=== PATIENT | male | born 1955 | race Caucasian/White ===

== ENCOUNTER 2023-08-06 15:34 | Inpatient (IN) | payer OTHER ==
[~2023-08-06] VITALS: Ht 188 cm; Wt 102.7 kg
[2023-08-06 17:07] LABS: Basophils # (auto) 0.1 10 ^3/uL (0-0.2); Basophils % (auto) 1.1 % (0.0-2.0); Eosinophils # (auto) 0.3 10 ^3/uL (0-0.8); Eosinophils % (auto) 3.6 % (0.0-7.0); Hematocrit 47.6 % (41.0-53.0); Hemoglobin 16.6 g/dL (13.5-17.5); Lymphocytes # (auto) 1.8 10 ^3/uL (0.4-5.4); Lymphocytes % (auto) 20.8 % (10.0-50.0); Mean Corpuscular Hemoglobin 33.6 pg (28.0-32.0); Mean Corpuscular Hgb Conc. 34.9 g/dL (32.0-36.0); Mean Corpuscular Volume 96.5 fL (80.0-100.0); Monocytes # (auto) 0.8 10 ^3/uL (0-1.3); Monocytes % (auto) 8.9 % (0.0-12.0); Neutrophils # (auto) 5.6 10 ^3/uL (1.6-8.6); Neutrophils % (auto) 65.6 % (37.0-80.0); Nucleated Red Blood Cells % 0.3 %; Red Blood Cells 4.93 10^6/uL (4.5-5.90); Red Cell Distribution Width 14.6 % (11.8-14.3); White Blood Cell 8.5 10^3/uL (4.4-10.8)
[2023-08-06 17:22] LABS: Alanine Aminotransferase 17 U/L (7-40); Albumin 4.3 g/dL (3.2-4.8); Alkaline Phosphatase 98 U/L (46-116); Anion Gap 11 (5-15); Aspartate Aminotransferase 23 U/L (13-40); BUN/Creatinine Ratio 6.7 (10.0-20.0); Bilirubin, Total 0.6 mg/dL (0.2-1.0); Blood Urea Nitrogen 9 mg/dL (9-23); Calcium 9.2 mg/dL (8.5-10.1); Carbon Dioxide 20 mmol/L (20-30); Chloride 90 mmol/L (98-107); Glucose 83 mg/dL (74-106); Potassium 4.1 mmol/L (3.5-5.1); Sodium 121 mmol/L (136-145); Total Protein 7.1 g/dL (5.7-8.2)
[2023-08-06 17:39] LABS: Lactic Acid w/Reflex 2.6 mmol/L (0.4-2.0)
[2023-08-06] MEDS: SODIUM CHLORIDE 0.9% 1,000 ML IV ONE ×2 (21:03→22:39)
[2023-08-06] MEDS: CLINDAMYCIN 300MG IV 50 ML IV ONE (21:12)
[2023-08-06] MEDS: PIPERACILLIN-TAZOB 3.375GM 100 ML IV ONE (22:39)
[2023-08-06] MEDS ORDERED: DOCUSATE SOD 100 MG CAP PO PRN (22:45)
[2023-08-06] MEDS ORDERED: DEXTROSE (50%) 50ML SYRG IV PRN (22:45)
[2023-08-06] MEDS ORDERED: HYDROcodone-ACET 5/325MG TAB PO PRN (22:45)
[2023-08-06] MEDS ORDERED: ONDANSETRON HCL 4 MG/2 ML VIAL IV PRN (22:45)
[2023-08-06] MEDS ORDERED: ACETAMINOPHEN 325 MG TAB PO PRN (22:45)
[2023-08-07] MEDS: SODIUM CHLORIDE 0.9% 500 ML IV ONE (02:08)
[2023-08-07] MEDS: SODIUM CHLORIDE 0.9% 1,000 ML IV SCH (02:49)
[2023-08-07 06:25] LABS: Basophils # (auto) 0.1 10 ^3/uL (0-0.2); Basophils % (auto) 0.6 % (0.0-2.0); Eosinophils # (auto) 0.1 10 ^3/uL (0-0.8); Eosinophils % (auto) 1.2 % (0.0-7.0); Hematocrit 46.5 % (41.0-53.0); Hemoglobin 16.2 g/dL (13.5-17.5); Lymphocytes # (auto) 1.2 10 ^3/uL (0.4-5.4); Lymphocytes % (auto) 13.5 % (10.0-50.0); Mean Corpuscular Hgb Conc. 34.9 g/dL (32.0-36.0); Mean Corpuscular Volume 97.3 fL (80.0-100.0); Monocytes # (auto) 0.9 10 ^3/uL (0-1.3); Monocytes % (auto) 9.5 % (0.0-12.0); Neutrophils # (auto) 6.9 10 ^3/uL (1.6-8.6); Neutrophils % (auto) 75.2 % (37.0-80.0); Nucleated Red Blood Cells % 0.1 %; Red Blood Cells 4.77 10^6/uL (4.5-5.90); Red Cell Distribution Width 14.3 % (11.8-14.3); White Blood Cell 9.1 10^3/uL (4.4-10.8)
[2023-08-07] MEDS: PIPERACILLIN-TAZOB 3.375GM 100 ML IV SCH (06:31)
[2023-08-07 06:42] LABS: Alanine Aminotransferase 18 U/L (7-40); Albumin 4.1 g/dL (3.2-4.8); Alkaline Phosphatase 97 U/L (46-116); Anion Gap 9 (5-15); Aspartate Aminotransferase 23 U/L (13-40); BUN/Creatinine Ratio 7.8 (10.0-20.0); Bilirubin, Total 1.1 mg/dL (0.2-1.0); Blood Urea Nitrogen 9 mg/dL (9-23); Calcium 8.8 mg/dL (8.5-10.1); Carbon Dioxide 20 mmol/L (20-30); Chloride 93 mmol/L (98-107); Glucose 104 mg/dL (74-106); Potassium 4.5 mmol/L (3.5-5.1); Sodium 122 mmol/L (136-145); Total Protein 6.9 g/dL (5.7-8.2)
[2023-08-07] MEDS: InsuLIN REG 1unit/0.01ml Soln (100units/ml) SC SCH (07:00)
[2023-08-07] MEDS: ACCU-CHEK COMFORT CURVE STRIP VI SCH (07:24)
[2023-08-07 08:41] VITALS: PULSE 73; RESP 18; O2SAT 95
[2023-08-07] MEDS: ASCORBIC ACID 500 MG TAB PO SCH (10:59)
[2023-08-07] MEDS: ASPirin 81 mg TAB PO SCH (10:59)
[2023-08-07] MEDS: ZINC SULFATE 220mg CAP or TAB PO SCH (10:59)
[2023-08-07 13:16] VITALS: BP 139/89; PULSE 77; RESP 19; TEMP 98; O2SAT 95
[2023-08-07] MEDS ORDERED: VANCOMYCIN PER PHARMACY 0 MG IV SCH (14:15)
[2023-08-07 14:25] LABS: Triglycerides 47 mg/dL (< 150)
[2023-08-07 14:26] LABS: LDL Cholesterol 63 mg/dL (< 100)
[2023-08-07 14:27] LABS: Cholesterol 160 mg/dL (< 200); HDL Cholesterol 82 mg/dL (40-59)
[2023-08-07] MEDS ORDERED: METF-371 PO (16:28)
[2023-08-07] MEDS ORDERED: ATOR10TA52 PO (16:30)
[2023-08-07] MEDS ORDERED: METO-289 PO (16:30)
[2023-08-07] MEDS ORDERED: AMLO1TAB22 PO (16:30)
[2023-08-07] MEDS ORDERED: LOSA-534 PO (16:30)
[2023-08-07] MEDS: VANCOMYCIN 1GM/200ML 200 ML IV ONE (16:34)
[2023-08-07 16:45] VITALS: BP 157/103; PULSE 99; RESP 19; TEMP 98; O2SAT 96
[2023-08-07 20:03] VITALS: PULSE 89; RESP 17; O2SAT 96
[2023-08-07 21:00] VITALS: BP 144/88; PULSE 89; RESP 17; TEMP 97.8; O2SAT 96
[2023-08-07] MEDS: CLOTRIMAZOLE 1 % CREAM 15GM TOP SCH (22:00)
[2023-08-07] MEDS: ATORVASTATIN 20 MG TAB PO SCH (22:31)
[2023-08-08] VITALS (7 sets, daily range): BP systolic 129–153; BP diastolic 74–91; PULSE 71–87; RESP 17–20; TEMP 97.4–98.5; O2SAT 95–98
[2023-08-08] MEDS: VANCOMYCIN 1GM/200ML 200 ML IV SCH (05:11)
[2023-08-08 05:56] LABS: Basophils # (auto) 0.1 10 ^3/uL (0-0.2); Basophils % (auto) 0.9 % (0.0-2.0); Eosinophils # (auto) 0.3 10 ^3/uL (0-0.8); Eosinophils % (auto) 4.3 % (0.0-7.0); Hematocrit 42.5 % (41.0-53.0); Hemoglobin 14.7 g/dL (13.5-17.5); Lymphocytes % (auto) 15.5 % (10.0-50.0); Mean Corpuscular Hemoglobin 33.7 pg (28.0-32.0); Mean Corpuscular Hgb Conc. 34.6 g/dL (32.0-36.0); Mean Corpuscular Volume 97.5 fL (80.0-100.0); Monocytes # (auto) 0.7 10 ^3/uL (0-1.3); Monocytes % (auto) 11.5 % (0.0-12.0); Neutrophils # (auto) 4.3 10 ^3/uL (1.6-8.6); Neutrophils % (auto) 67.8 % (37.0-80.0); Red Blood Cells 4.36 10^6/uL (4.5-5.90); Red Cell Distribution Width 14.4 % (11.8-14.3); White Blood Cell 6.3 10^3/uL (4.4-10.8)
[2023-08-08 07:00] LABS: Alanine Aminotransferase 12 U/L (7-40); Albumin 3.4 g/dL (3.2-4.8); Alkaline Phosphatase 81 U/L (46-116); Anion Gap 7 (5-15); Aspartate Aminotransferase 17 U/L (13-40); BUN/Creatinine Ratio 11.2 (10.0-20.0); Bilirubin, Total 1.1 mg/dL (0.2-1.0); Blood Urea Nitrogen 13 mg/dL (9-23); Calcium 9.1 mg/dL (8.7-10.4); Carbon Dioxide 24 mmol/L (20-30); Chloride 97 mmol/L (98-107); Glucose 142 mg/dL (74-106); Potassium 4.6 mmol/L (3.5-5.1)
[2023-08-08 07:03] LABS: Sodium 128 mmol/L (136-145)
[2023-08-08] MEDS: LOSARTAN POTASSIUM 50 MG TAB PO SCH (10:42)
[2023-08-09] VITALS (8 sets, daily range): BP systolic 138–171; BP diastolic 78–108; PULSE 66–79; RESP 18–20; TEMP 97.2–98.2; O2SAT 83–97
[2023-08-09 07:00] LABS: Basophils # (auto) 0.1 10 ^3/uL (0-0.2); Basophils % (auto) 1.1 % (0.0-2.0); Eosinophils # (auto) 0.4 10 ^3/uL (0-0.8); Eosinophils % (auto) 5.8 % (0.0-7.0); Hematocrit 42.5 % (41.0-53.0); Hemoglobin 14.3 g/dL (13.5-17.5); Lymphocytes # (auto) 1.6 10 ^3/uL (0.4-5.4); Lymphocytes % (auto) 24.6 % (10.0-50.0); Mean Corpuscular Hemoglobin 33.3 pg (28.0-32.0); Mean Corpuscular Hgb Conc. 33.7 g/dL (32.0-36.0); Mean Corpuscular Volume 98.8 fL (80.0-100.0); Monocytes # (auto) 0.9 10 ^3/uL (0-1.3); Monocytes % (auto) 13.4 % (0.0-12.0); Neutrophils # (auto) 3.5 10 ^3/uL (1.6-8.6); Neutrophils % (auto) 55.1 % (37.0-80.0); Nucleated Red Blood Cells % 0.1 %; Red Cell Distribution Width 14.6 % (11.8-14.3); White Blood Cell 6.4 10^3/uL (4.4-10.8)
[2023-08-09 07:29] LABS: Alanine Aminotransferase 10 U/L (7-40); Albumin 3.3 g/dL (3.2-4.8); Alkaline Phosphatase 67 U/L (46-116); Anion Gap 8 (5-15); Aspartate Aminotransferase 19 U/L (13-40); BUN/Creatinine Ratio 6.6 (10.0-20.0); Blood Urea Nitrogen 8 mg/dL (9-23); Calcium 8.9 mg/dL (8.7-10.4); Carbon Dioxide 21 mmol/L (20-30); Chloride 101 mmol/L (98-107); Glucose 115 mg/dL (74-106); Potassium 4.1 mmol/L (3.5-5.1); Sodium 130 mmol/L (136-145)
[2023-08-09 07:30] LABS: Bilirubin, Total 0.8 mg/dL (0.2-1.0); Total Protein 6.2 g/dL (5.7-8.2)
[2023-08-09] MEDS: hydrALAZINE HCL 20 MG/ML VL IV PRN (22:01)
[2023-08-10] VITALS (7 sets, daily range): BP systolic 146–159; BP diastolic 84–104; PULSE 66–87; RESP 18–20; TEMP 97.3–98.2; O2SAT 95–97
[2023-08-10 05:37] LABS: Basophils # (auto) 0.1 10 ^3/uL (0-0.2); Eosinophils # (auto) 0.4 10 ^3/uL (0-0.8); Eosinophils % (auto) 5.7 % (0.0-7.0); Lymphocytes # (auto) 1.4 10 ^3/uL (0.4-5.4); Mean Corpuscular Volume 98.2 fL (80.0-100.0); Monocytes # (auto) 0.8 10 ^3/uL (0-1.3); Neutrophils # (auto) 3.9 10 ^3/uL (1.6-8.6)
[2023-08-10 05:41] LABS: Alanine Aminotransferase 11 U/L (7-40); Alkaline Phosphatase 72 U/L (46-116); Anion Gap 7 (5-15); BUN/Creatinine Ratio 8.1 (10.0-20.0); Blood Urea Nitrogen 9 mg/dL (9-23); Calcium 9.5 mg/dL (8.7-10.4); Carbon Dioxide 24 mmol/L (20-30); Chloride 99 mmol/L (98-107); Glucose 126 mg/dL (74-106); Potassium 3.8 mmol/L (3.5-5.1); Sodium 130 mmol/L (136-145)
[2023-08-10 05:42] LABS: Hemoglobin 15.5 g/dL (13.5-17.5); Lymphocytes % (auto) 21.1 % (10.0-50.0); Mean Corpuscular Hemoglobin 33.9 pg (28.0-32.0); Mean Corpuscular Hgb Conc. 34.5 g/dL (32.0-36.0); Monocytes % (auto) 11.9 % (0.0-12.0); Neutrophils % (auto) 60.3 % (37.0-80.0); Nucleated Red Blood Cells % 0.4 %; Red Blood Cells 4.58 10^6/uL (4.5-5.90); Red Cell Distribution Width 14.2 % (11.8-14.3); White Blood Cell 6.4 10^3/uL (4.4-10.8)
[2023-08-10 05:43] LABS: Albumin 3.7 g/dL (3.2-4.8); Aspartate Aminotransferase 19 U/L (13-40); Bilirubin, Total 0.7 mg/dL (0.2-1.0); Total Protein 6.8 g/dL (5.7-8.2)
[2023-08-11] VITALS (8 sets, daily range): BP systolic 117–182; BP diastolic 70–108; PULSE 70–84; RESP 16–20; TEMP 97.3–98.7; O2SAT 94–96
[2023-08-11 06:40] LABS: Basophils # (auto) 0.1 10 ^3/uL (0-0.2); Basophils % (auto) 1.3 % (0.0-2.0); Eosinophils # (auto) 0.4 10 ^3/uL (0-0.8); Eosinophils % (auto) 7.2 % (0.0-7.0); Hematocrit 41.2 % (41.0-53.0); Lymphocytes # (auto) 1.4 10 ^3/uL (0.4-5.4); Mean Corpuscular Hemoglobin 33.3 pg (28.0-32.0); Monocytes # (auto) 0.6 10 ^3/uL (0-1.3); Neutrophils # (auto) 3.3 10 ^3/uL (1.6-8.6); Neutrophils % (auto) 56.5 % (37.0-80.0); Red Cell Distribution Width 14.5 % (11.8-14.3); White Blood Cell 5.8 10^3/uL (4.4-10.8)
[2023-08-11 07:01] LABS: Alanine Aminotransferase 11 U/L (7-40); Albumin 3.3 g/dL (3.2-4.8); Alkaline Phosphatase 60 U/L (46-116); Anion Gap 5 (5-15); BUN/Creatinine Ratio 7.8 (10.0-20.0); Blood Urea Nitrogen 9 mg/dL (9-23); Calcium 8.7 mg/dL (8.5-10.1); Carbon Dioxide 24 mmol/L (20-30); Chloride 102 mmol/L (98-107); Glucose 121 mg/dL (74-106); Potassium 3.9 mmol/L (3.5-5.1); Sodium 131 mmol/L (136-145)
[2023-08-11 07:02] LABS: Aspartate Aminotransferase 19 U/L (13-40); Bilirubin, Total 0.5 mg/dL (0.2-1.0)
[2023-08-12] VITALS (8 sets, daily range): BP systolic 130–175; BP diastolic 83–102; PULSE 67–86; RESP 16–20; TEMP 36.4; O2SAT 94–97
[2023-08-12 06:17] LABS: Basophils # (auto) 0.1 10 ^3/uL (0-0.2); Basophils % (auto) 1.4 % (0.0-2.0); Eosinophils # (auto) 0.5 10 ^3/uL (0-0.8); Eosinophils % (auto) 8.1 % (0.0-7.0); Hematocrit 41.3 % (41.0-53.0); Hemoglobin 14.1 g/dL (13.5-17.5); Lymphocytes # (auto) 1.3 10 ^3/uL (0.4-5.4); Lymphocytes % (auto) 22.2 % (10.0-50.0); Mean Corpuscular Hemoglobin 33.5 pg (28.0-32.0); Mean Corpuscular Hgb Conc. 34.1 g/dL (32.0-36.0); Mean Corpuscular Volume 98.3 fL (80.0-100.0); Monocytes # (auto) 0.8 10 ^3/uL (0-1.3); Monocytes % (auto) 12.8 % (0.0-12.0); Neutrophils # (auto) 3.3 10 ^3/uL (1.6-8.6); Neutrophils % (auto) 55.5 % (37.0-80.0); Red Cell Distribution Width 14.7 % (11.8-14.3); White Blood Cell 5.9 10^3/uL (4.4-10.8)
[2023-08-12 06:32] LABS: Alanine Aminotransferase 13 U/L (7-40); Alkaline Phosphatase 60 U/L (46-116); Anion Gap 7 (5-15); BUN/Creatinine Ratio 7.4 (10.0-20.0); Blood Urea Nitrogen 8 mg/dL (9-23); Calcium 8.9 mg/dL (8.5-10.1); Carbon Dioxide 23 mmol/L (20-30); Chloride 102 mmol/L (98-107); Glucose 112 mg/dL (74-106); Potassium 3.8 mmol/L (3.5-5.1); Sodium 132 mmol/L (136-145)
[2023-08-12 06:33] LABS: Albumin 3.3 g/dL (3.2-4.8); Aspartate Aminotransferase 19 U/L (13-40); Bilirubin, Total 0.5 mg/dL (0.2-1.0); Total Protein 6.1 g/dL (5.7-8.2)
[2023-08-12] MEDS: amLODIPine BESYLATE 5 MG TAB PO SCH (12:30)
[2023-08-12] MEDS ORDERED: CLIN1CAP70 PO (12:40)
[2023-08-12] MEDS ORDERED: CLOT1CRE56 TOP (12:40)
[2023-08-13] MEDS ORDERED: DAKINS QUARTER STR 0.125% (NaHypochlorite) 473 ML TOPICAL SOL TOP SCH (10:00)
== END 2023-08-12 18:06 | disposition home or self-care (01) | DRG 638 ==
LOC: ER 15:34 → OVERFLOW 08-07 → CENTRAL 08-07 12:17
PROVIDERS: ADMIT Internal Medicine; ATTEND Internal Medicine
DX: E11.621 Type 2 diabetes mellitus with foot ulcer (principal); E87.1 Hypo-osmolality and hyponatremia; L03.116 Cellulitis of left lower limb; L97.529 Non-pressure chronic ulcer of other part of left foot with unspecified severity; E78.5 Hyperlipidemia, unspecified; I10 Essential (primary) hypertension; E11.51 Type 2 diabetes mellitus with diabetic peripheral angiopathy without gangrene
CPT/HCPCS: 36415; 73700; 73718; 80053; 80061; 80202; 82565; 82962; 83036; 83605; 84295; 85025; 87040; 93925; 96365; 96367; G0378; J1815; J2543; J3490

== ENCOUNTER 2024-03-15 04:43 | Emergency (ER) | payer OTHER ==
[~2024-03-15] VITALS: Ht 188 cm; Wt 97.3 kg
[~2024-03-15 04:43] MED LIST: AMLO1TAB22 PO; ATOR10TA52 PO; CLIN1CAP70 PO; CLOT1CRE56 TOP; LOSA-534 PO; METF-371 PO; METO-289 PO
--- NOTE | 2024-03-15 05:23 | ED.PDOC ---
History of Present Illness HPI Comments 68 y/o M, with a Hx of DM, HLD, and DM, presents with c/o bilateral leg pain for 1 year. Patient is a poor historian and endorses on having pain in the legs that makes it "difficult to get up and sit down." Patient states on using his medications that he has no recollection of to manage his pain up until, today, and states on running out of some. Patient denies having any weakness, numbness, fever, chills, or other associated symptoms or modifiers at this time Chief Complaint: Lower Extremity Time Seen by MD: 05:10 Primary Care Provider: NONE Reviewed Notes: Nurses Notes, Medications, Allergies Allergies: Coded Allergies: NO KNOWN ALLERGIES (Unverified , 08/06/23) Home Meds Active Scripts Clotrimazole (Lotrimin) 1 Applic Ap, 1 APPLIC TOP BID for 15 Days, APPLIC Prov:WILBER TINEO RESIDENT 08/12/23 Clindamycin Hcl (Clindamycin Hcl) 300 Mg Cap, 300 MG PO TID for 14 Days, CAP Prov:WILBER TINEO RESIDENT 08/12/23 Reported Medications Atorvastatin Calcium (ATORVASTATIN CALCIUM) 10 Mg Tab, 1 TAB PO DAILY, #30 TAB 5 Refills 08/07/23 Losartan Potassium (Losartan Potassium) 50 Mg Tab, 50 MG PO DAILY for 30 Days, MG 08/07/23 Amlodipine Besylate (Amlodipine Besylate) 5 Mg Tab, 5 MG PO DAILY for 30 Days, MG 08/07/23 Metoprolol Succinate (Metoprolol Succinate Er) 50 Mg Tab, 50 MG PO DAILY for 30 Days, MG 08/07/23 Metformin Hydrochloride (Metformin Hcl) 850 Mg Tab, 850 MG PO TID for 30 Days, MG 08/07/23 Information Source: Patient Mode of Arrival: Ambulatory Severity: Moderate Timing: Months (12 months) Duration: Since onset Prehospital treatment: None Past Medical History PAST MEDICAL HISTORY: DM, High Lipids, HTN Surgical History: Denies all surgeries Family History Family History: Reviewed,noncontributory to illness, Unknown Social History Smoker: Non-Smoker Alcohol: Occasionally Drugs: Denies Drug Use Lives In: Home Constitutional: denies: chills, diaphoresis, fatigue, fever, malaise, sweats, weakness, others EENTM: denies: blurred vision, double vision, ear bleeding, ear discharge, ear drainage, ear pain, ear ringing, eye pain, eye redness, hearing loss, mouth pa in, mouth swelling, nasal discharge, nose bleeding, nose congestion, nose pain, photophobia, tearing, throat pain, throat swelling, voice changes, others Respiratory: denies: cough, hemoptysis, orthopnea, SOB at rest, shortness of breath, SOB with excertion, stridor, wheezing, others Cardiovascular: denies: chest pain, dizzy spells, diaphoresis, Dyspnea on exertion, edema, irregular heart beat, left arm pain, lightheadedness, palpitations, PND, syncope, others Gastrointestinal: denies: abdomen distended, abdominal pain, blood streaked bowels, constipated, diarrhea, dysphagia, difficulty swallowing, hematemesis, melena, nausea, poor appetite, poor fluid intake, rectal bleeding, rectal pain, vomiting, others Genitourinary: denies: burning, dysuria, flank pain, frequency, hematuria, incontinence, penile discharge, penile sore, pain, testicle pain, testicle swelling, urgency, others Neurological: denies: dizziness, fainting, headache, left sided numbness, left sided weakness, numbness, paresthesia, pre-existing deficit, right sided numbness, right sided weakness, seizure, speech problems, tingling, tremors, weakness, others Musculoskeletal: reports: others (bilateral leg pain ); denies: back pain, gout, joint pain, joint swelling, muscle pain, muscle stiffness, neck pain Integumetry: denies: bruises, change in color, change in hair/nails, dryness, laceration, lesions, lumps, rash, wounds, others Allergic/Immunocompromised: denies: Difficulty Healing, Frequent Infections, Hives, Itching, others Hematologic/Lymphatic: denies: anemia, blood clots, easy bleeding, easy bruising, swollen glands, others Endocrine: denies: excessive hunger, excessive sweating, excessive thirst, excessive urination, flushing, intolerance to cold, intolerance to heat, unexplained weight gain, unexplained weight loss, others Psychiatric: denies: anxiety, bipolar disorder, depression, hopeless, panic disorder, schizophrenia, sleepless, suicidal, others All Other Systems: Reviewed and Negative Physical Exam General Appearance: No Apparent Distress HEENT: Normal ENT Inspection, Pharynx Normal, TMs Normal Neck: Full Range of Motion, Non-Tender, Normal, Normal Inspection Respiratory: Chest Non-Tender, Lungs Clear, No Accessory Muscle Use, No Respiratory Distress, Normal Breath Sounds Cardiovascular: No Edema, No JVD, No Murmur, No Gallop, Normal Peripheral Pulses, Regular Rate/Rhythm Breast Exam: Deferred Gastrointestinal: No Organomegaly, Non Tender, No Pulsatile Mass, Normal Bowel Sounds, Soft Genitalia: Deferred Pelvic: Deferred Rectal: Deferred Extremities: No calf tenderness, Normal capillary refill, Normal inspection, Normal range of motion, Non-tender, No pedal edema Musculoskeletal : Apperance: Normal Neurologic: 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 Was a procedure done?: No Differential Dx Considerations may include: chronic pain syndrome, sciatic, sprain X-Ray, Labs, Meds, VS Vital Signs Date Time Temp Pulse Resp B/P (MAP) Pulse Ox O2 Delivery O2 Flow Rate FiO2 03/15/24 05:00 99.0 95 16 124/94 (104) 94 At this time, the patient was given Toradol 30 mg IM The patient was being discharged and will follow up with the primary care doctor The patient will return to the emergency department's the condition worsens Time of 1ST Reevaluation: 05:40 Reevaluation 1ST: Unchanged Patient Education/Counseling: Diagnosis, Treatment, Prognosis, Need For Follow Up Family Education/Counseling: No Family Present Departure 1 Departure Time of Disposition: 05:29 Impression: Primary Impression: Bilateral leg pain Disposition: 01 HOME / SELF CARE / HOMELESS Condition: Fair Discharged With: Self Critical Care Note Critical Care Time?: No Stability Stability form required: No Heart Score Heart Score: Heart Score Response (Comments) Value History N/A 0 EKG N/A 0 Age N/A 0 Risk Factors N/A 0 Troponin N/A 0 Total 0 I personally scribed for ABDOUL JOE MD ([email or web address]) on 03/15/24 at 05:23. Electronically submitted by Rd Myers ([email or web address]). ABDOUL JOE MD Mar 15, 2024 05:23
[2024-03-15 06:40] VITALS: BP 133/86; PULSE 98; RESP 22; TEMP 98.9; O2SAT 95
[2024-03-15] MEDS: KETOROLAC TROMETH 60MG/2ML VIAL IM ONE (06:45)
== END 2024-03-15 07:15 | disposition home or self-care (01) ==
LOC: ER 04:43
DX: M79.605 Pain in left leg (principal); M79.604 Pain in right leg; E11.9 Type 2 diabetes mellitus without complications; E78.5 Hyperlipidemia, unspecified; I10 Essential (primary) hypertension; Z79.899 Other long term (current) drug therapy
CPT/HCPCS: 96372; 99283; J1885

== ENCOUNTER 2024-04-08 02:15 | Emergency (ER) | payer OTHER ==
[~2024-04-08] VITALS: Ht 188 cm; Wt 95.5 kg
[2024-04-08 03:29] VITALS: BP 109/75; PULSE 118; RESP 18; O2SAT 96
--- NOTE | 2024-04-08 04:11 | ED.PDOC ---
General HPI Comments 68-year-old male who came to ER for urinary issues. Patient does have history of hypertension and diabetes. States for the past few hours, has been having suprapubic abdominal pain, with episodes of gross hematuria and urinary frequency. Denies any dysuria or burning on urination. Patient also compla ining of swelling of the right lower extremity which has been going on for the past 6 months. Chief Complaint: Urinary Time Seen by MD: 04:10 Primary Care Provider: NONE Reviewed notes: Nurses Notes Allergies: Coded Allergies: NO KNOWN ALLERGIES (Unverified , 08/06/23) Home Meds Active Scripts Clotrimazole (Lotrimin) 1 Applic Ap, 1 APPLIC TOP BID for 15 Days, APPLIC Prov:WILBER TINEO RESIDENT 08/12/23 Clindamycin Hcl (Clindamycin Hcl) 300 Mg Cap, 300 MG PO TID for 14 Days, CAP Prov:WILBER TINEO RESIDENT 08/12/23 Reported Medications Atorvastatin Calcium (ATORVASTATIN CALCIUM) 10 Mg Tab, 1 TAB PO DAILY, #30 TAB 5 Refills 08/07/23 Losartan Potassium (Losartan Potassium) 50 Mg Tab, 50 MG PO DAILY for 30 Days, MG 08/07/23 Amlodipine Besylate (Amlodipine Besylate) 5 Mg Tab, 5 MG PO DAILY for 30 Days, MG 08/07/23 Metoprolol Succinate (Metoprolol Succinate Er) 50 Mg Tab, 50 MG PO DAILY for 30 Days, MG 08/07/23 Metformin Hydrochloride (Metformin Hcl) 850 Mg Tab, 850 MG PO TID for 30 Days, MG 08/07/23 Information Source: Patient Mode of Arrival: Ambulatory Severity: Moderate Inability to void: Mild Timing: Hours Duration: Since onset Has not urinated for: Minutes Onset: Spontaneous Symptoms: Frequency, Hematuria History of: None Location: Suprapubic associated signs and symptoms: Abdominal Pain, Frequency, Hematuria Past Medical History PAST MEDICAL HISTORY: DM, High Lipids, HTN Surgical History: Denies all surgeries Family History Family History: Reviewed,noncontributory to illness Social History Smoker: Non-Smoker Alcohol: Occasionally Drugs: Denies Drug Use Lives In: Home Constitutional: denies: chills, diaphoresis, fatigue, fever, malaise, sweats, weakness, others EENTM: denies: blurred vision, double vision, ear bleeding, ear discharge, ear drainage, ear pain, ear ringing, eye pain, eye redness, hearing loss, mouth pain, mouth swelling, nasal discharge, nose bleeding, nose congestion, nose pain, photophobia, tearing, throat pain, throat swelling, voice changes, others Respiratory: denies: cough, hemoptysis, orthopnea, SOB at rest, shortness of breath, SOB with excertion, stridor, wheezing, others Cardiovascular: denies: chest pain, dizzy spells, diaphoresis, Dyspnea on exertion, edema, irregular heart beat, left arm pain, lightheadedness, palpitations, PND, syncope, others Gastrointestinal: reports: abdominal pain; denies: abdomen distended, blood streaked bowels, constipated, diarrhea, dysphagia, difficulty swallowing, hematemesis, melena, nausea, poor appetite, poor fluid intake, rectal bleeding, rectal pain, vomiting, others Genitourinary: reports: frequency, hematuria; denies: burning, dysuria, flank pain, incontinence, penile discharge, penile sore, pain, testicle pain, testicle swelling, urgency, others Neurological: denies: dizziness, fainting, headache, left sided numbness, left sided weakness, numbness, paresthesia, pre-existing deficit, right sided numbness, right sided weakness, seizure, speech problems, tingling, tremors, weakness, others Musculoskeletal: denies: back pain, gout, joint pain, joint swelling, muscle pain, muscle stiffness, neck pain, others Integumetry: denies: bruises, change in color, change in hair/nails, dryness, laceration, lesions, lumps, rash, wounds, others Allergic/Immunocompromised: denies: Difficulty Healing, Frequent Infections, Hives, Itching, others Hematologic/Lymphatic: denies: anemia, blood clots, easy bleeding, easy bruising, swollen glands, others Endocrine: denies: excessive hunger, excessive sweating, excessive thirst, excessive urination, flushing, intolerance to cold, intolerance to heat, unexplained weight gain, unexplained weight loss, others Psychiatric: denies: anxiety, bipolar disorder, depression, hopeless, panic disorder, schizophrenia, sleepless, suicidal, others Physical Exam General Appearance: No Apparent Distress, Normal HEENT: Normal ENT Inspection, Pharynx Normal, TMs Normal Neck: Full Range of Motion, Non-Tender, Normal, Normal Inspection Respiratory: Chest Non-Tender, Lungs Clear, No Accessory Muscle Use, No Respiratory Distress, Normal Breath Sounds Cardiovascular: No Edema, No JVD, No Murmur, No Gallop, Normal Peripheral Pul ses, Regular Rate/Rhythm Breast Exam: Deferred Gastrointestinal: No Organomegaly, Non Tender, No Pulsatile Mass, Normal Bowel Sounds, Soft Genitalia: Deferred Pelvic: Deferred Rectal: Deferred Extremities: No calf tenderness, Normal capillary refill, Normal inspection, Normal range of motion, Non-tender, No pedal edema Musculoskeletal : Apperance: Normal Neurologic: 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 Was a procedure done?: No Differential Diagnosis Kidney stone (Female): N/A Kidney stone (Male): Renal failure, Strain, Urinary obstruction, Urolithiasis, Renal infarction, Urinary tract infection Urinary Problem (Male): Renal Failure, Urethritis, Urinary Retention, Urolithiasis, UTI X-Ray, Labs, Meds, VS Vital Signs Date Time Temp Pulse Resp B/P (MAP) Pulse Ox O2 Delivery O2 Flow Rate FiO2 04/08/24 03:29 97.5 118 18 109/75 (86) 96 Time of 1ST Reevaluation: 04:05 Reevaluation 1ST: Unchanged Patient Education/Counseling: Diagnosis, Treatment Family Education/Counseling: No Family Present Departure 1 Departure Disposition: 07 LEFT WITHOUT BEING TRIAGED Critical Care Note Critical Care Time?: No Stability Stability form required: No Heart Score Heart Score: Heart Score Response (Comments) Value History N/A 0 EKG N/A 0 Age N/A 0 Risk Factors N/A 0 Troponin N/A 0 Total 0 I personally scribed for PAOLO LYNCH MD ([email or web address]) on 04/08/24 at 04:10. Electronically submitted by Dejuan Kay ([email or web address]). PAOLO LYNCH MD Apr 08, 2024 04:10
[2024-04-08 04:43] LABS: Urine Blood 3+ /uL (Negative); Urine Clarity Ex.Turbid (Clear); Urine Color Dark-Red (Yellow); Urine Protein, UAD 2+ (Negative); Urine Specific Gravity 1.029 (1.001-1.035); Urine Urobilinogen 3 mg/dL (Negative)
[2024-04-08 04:45] LABS: Urine Bacteria MANY /hpf (None Seen)
[2024-04-08 04:47] LABS: Urine WBC 0-1 /hpf (0 - 3)
[2024-04-08] MEDS ORDERED: CEPHALEXIN 250 MG CAP PO ONE (05:00)
== END 2024-04-08 05:03 | disposition left against medical advice (07) ==
LOC: ER 02:15
DX: R31.0 Gross hematuria (principal); R35.0 Frequency of micturition; R10.9 Unspecified abdominal pain; I10 Essential (primary) hypertension; E11.9 Type 2 diabetes mellitus without complications; E78.5 Hyperlipidemia, unspecified; Z79.84 Long term (current) use of oral hypoglycemic drugs; Z79.899 Other long term (current) drug therapy
CPT/HCPCS: 81001

== ENCOUNTER 2024-04-08 07:36 | Emergency (ER) | payer OTHER ==
[~2024-04-08] VITALS: Ht 188 cm; Wt 96.5 kg
--- NOTE | 2024-04-08 09:03 | ED.PDOC ---
History of Present Illness HPI Comments 68M presents to the ER w/ history of diabetes, hypertension and dyslipidemia brought in by self with c/c of LE swelling, right greater than left. Looking through prior Hx of the pt, he was in the ER last night complaining of blood in his urine but eloped from the ER. Patient states he went home to rest, now returns with the same complaint of hematuria for the past 2 days, and states he has not seen a physician for "a long time". PMHx of DM, High Lipids, and HTN. Denies chills, fever, N/V/D, SOB, CP, Pain During Urination or other associated symptoms, modifiers, or recent injuries at this time. Chief Complaint: Extremity Swelling Time Seen by MD: 08:30 Primary Care Provider: NONE Reviewed Notes: Nurses Notes, Medications, Allergies Allergies: Coded Allergies: NO KNOWN ALLERGIES (Unverified , 08/06/23) Home Meds Active Scripts Clotrimazole (Lotrimin) 1 Applic Ap, 1 APPLIC TOP BID for 15 Days, APPLIC Prov:WILBER TINEO RESIDENT 08/12/23 Clindamycin Hcl (Clindamycin Hcl) 300 Mg Cap, 300 MG PO TID for 14 Days, CAP Prov:WILBER TINEO RESIDENT 08/12/23 Reported Medications Atorvastatin Calcium (ATORVASTATIN CALCIUM) 10 Mg Tab, 1 TAB PO DAILY, #30 TAB 5 Refills 08/07/23 Losartan Potassium (Losartan Potassium) 50 Mg Tab, 50 MG PO DAILY for 30 Days, MG 08/07/23 Amlodipine Besylate (Amlodipine Besylate) 5 Mg Tab, 5 MG PO DAILY for 30 Days, MG 08/07/23 Metoprolol Succinate (Metoprolol Succinate Er) 50 Mg Tab, 50 MG PO DAILY for 30 Days, MG 08/07/23 Metformin Hydrochloride (Metformin Hcl) 850 Mg Tab, 850 MG PO TID for 30 Days, MG 08/07/23 Information Source: Patient Mode of Arrival: Ambulatory Severity: Moderate Timing: Hours Duration: Since onset, Hours Prehospital treatment: None Past Medical History PAST MEDICAL HISTORY: DM, High Lipids, HTN Surgical History: Denies all surgeries Family History Family History: Reviewed,noncontributory to illness, Unknown Social History Smoker: Unknown Alcohol: Unknown Drugs: Unknown Lives In: Home Constitutional: denies: chills, diaphoresis, fatigue, fever, malaise, sweats, weakness, others EENTM: denies: blurred vision, double vision, ear bleeding, ear discharge, ear drainage, ear pain, ear ringing, eye pain, eye redness, hearing loss, mouth pain, mouth swelling, nasal discharge, nose bleeding, nose congestion, nose pain, photophobia, tearing, throat pain, throat swelling, voice changes, others Respiratory: denies: cough, hemoptysis, orthopnea, SOB at rest, shortness of breath, SOB with excertion, stridor, wheezing, others Cardiovascular: denies: chest pain, dizzy spells, diaphoresis, Dyspnea on exertion, edema, irregular heart beat, left arm pain, lightheadedness, palpitations, PND, syncope, others Gastrointestinal: denies: abdomen distended, abdominal pain, blood streaked bowels, constipated, diarrhea, dysphagia, difficulty swallowing, hematemesis, melena, nausea, poor appetite, poor fluid intake, rectal bleeding, rectal pain, vomiting, others Genitourinary: reports: hematuria; denies: burning, dysuria, flank pain, frequency, incontinence, penile discharge, penile sore, pain, testicle pain, testicle swelling, urgency, others Neurological: denies: dizziness, fainting, headache, left sided numbness, left sided weakness, numbness, paresthesia, pre-existing deficit, right sided numbness, right sided weakness, seizure, speech problems, tingling, tremors, weakness, others Musculoskeletal: denies: back pain, gout, joint pain, joint swelling, muscle pain, muscle stiffness, neck pain, others Integumetry: denies: bruises, change in color, change in hair/nails, dryness, laceration, lesions, lumps, rash, wounds, others Allergic/Immunocompromised: denies: Difficulty Healing, Frequent Infections, Hives, Itching, others Hematologic/Lymphatic: denies: anemia, blood clots, easy bleeding, easy bruising, swollen glands, others Endocrine: denies: excessive hunger, excessive sweating, excessive thirst, excessive urination, flushing, intolerance to cold, intolerance to heat, unexplained weight gain, unexplained weight loss, others Psychiatric: denies: anxiety, bipolar disorder, depression, hopeless, panic disorder, schizophrenia, sleepless, suicidal, others All Other Systems: Reviewed and Negative Physical Exam General Appearance: No Apparent Distress HEENT: Other (Pupils symmetric, dry mucous membranes) Neck: Full Range of Motion, Normal Inspection Respiratory: Lungs Clear, No Accessory Muscle Use, No Respiratory Distress, Normal Breath Sounds Cardiovascular: No JVD, Regular Rate/Rhythm Breast Exam: Deferred Gastrointestinal: Non Tender, Soft Genitalia: Deferred Pelvic: Deferred Rectal: Deferred Extremities: No calf tenderness, Normal inspection, Normal range of motion, Non-tender, Pedal edema Musculoskeletal : Apperance: Normal Neurologic: Alert (Oriented x4), Normal Affect, Normal Mood, Other (Ambulatory without difficulty. No gross focal deficit.) Cerebellar Function: NOT DONE Reflexes: NOT DONE Skin: Dry, Warm, Other (Mild right greater than left bilateral foot and ankle erythema) Lymphatic: NOT DONE Was a procedure done? Was a procedure done?: No EKG EKG : Comments Sinus tach, rate 103, normal intervals, left axis deviation, possible old inferior or anteroseptal infarct, no ST/T changes. Differential Dx Considerations may include: DVT, cellulitis, coagulopathy, UTI, hyperglycemia, hyperglycemic hyperosmolar state, DKA, electrolyte imbalance, hypovolemia, among others. X-Ray, Labs, Meds, VS Vital Signs Date Time Temp Pulse Resp B/P (MAP) Pulse Ox O2 Delivery O2 Flow Rate FiO2 04/08/24 10:18 96 16 152/99 (116) 96 04/08/24 10:02 96 18 96 Room Air* 0 21 04/08/24 08:15 103 04/08/24 08:07 98.5 109 17 135/91 (106) 100 Lab Test 04/08/24 10:12 04/08/24 09:20 04/08/24 09:16 04/08/24 09:00 Range/Units Lactic Acid Level 5.9 *H 2.3 *H 0.4-2.0 mmol/L Troponin I High Sensitivity 28 25 </=54 ng/L Blood Gas Specimen Type Arterial Blood Gas Sample Site Right radial Blood Gas Patient Temperature 37.0 Arterial Blood Date Drawn [id number] Arterial Blood pH 7.397 7.350-7.450 Arterial Blood Partial Pressure CO2 34.6 L 35.0-48.0 mmHg Arterial Blood Partial Pressure O2 70.7 L 83.0-108.0 mmHg Arterial Blood HCO3 20.8 L 21.0-28.0 mmol/L Arterial Blood Oxygen Saturation 93.8 L 94.0-98.0 % Arterial Blood Base Excess -3.1 L -2.0-3.0 mmol/L Arterial Blood Oxyhemoglobin 92.4 L 94.0-98.0 % Arterial Blood Carboxyhemoglobin 0.9 0.5-1.5 % Arterial Blood Methemoglobin 0.6 0.0-1.5 % Dimas Test Yes Blood Gas Total Hemoglobin 17.10 13.5-17.5 g/dL Blood Gas Modality Room air FiO2 % 21.0 White Blood Count 13.6 H 4.4-10.8 10^3/uL Red Blood Count 5.20 4.5-5.90 10^6/uL Hemoglobin 16.7 13.5-17.5 g/dL Hematocrit 49.8 41.0-53.0 % Mean Corpuscular Volume 95.7 80.0-100.0 fL Mean Corpuscular Hemoglobin 32.1 H 28.0-32.0 pg Mean Corpuscular Hemoglobin Concent 33.6 32.0-36.0 g/dL Red Cell Distribution Width 13.2 11.8-14.3 % Platelet Count 248 140-450 10^3/uL Mean Platelet Volume 9.2 6.9-10.8 fL Neutrophils (%) (Auto) 87.4 H 37.0-80.0 % Lymphocytes (%) (Auto) 5.3 L 10.0-50.0 % Monocytes (%) (Auto) 6.6 0.0-12.0 % Eosinophils (%) (Auto) 0.1 0.0-7.0 % Basophils (%) (Auto) 0.6 0.0-2.0 % Neutrophils # (Auto) 11.9 H 1.6-8.6 10 ^3/uL Lymphocytes # (Auto) 0.7 0.4-5.4 10 ^3/uL Monocytes # (Auto) 0.9 0-1.3 10 ^3/uL Eosinophils # (Auto) 0 0-0.8 10 ^3/uL Basophils # (Auto) 0.1 0-0.2 10 ^3/uL Nucleated Red Blood Cells 0.1 % Prothrombin Time 10.9 9.3-11.8 sec Prothrombin Time INR 1.03 0.9-1.15 Activated Partial Thromboplast Time 31.7 24.5-34.5 SEC Sodium Level 119 *L 136-145 mmol/L Potassium Level 4.6 3.5-5.1 mmol/L Chloride Level 87 L 98-107 mmol/L Carbon Dioxide Level 20 20-31 mmol/L Anion Gap 12 5-15 Blood Urea Nitrogen 15 9-23 mg/dL Creatinine 1.93 H 0.700-1.30 mg/dL Glomerular Filtration Rate Calc 37 >90 mL/min BUN/Creatinine Ratio 7.8 L 10.0-20.0 Serum Glucose 804 *H 74-106 mg/dL Calcium Level 9.7 8.7-10.4 mg/dL Total Bilirubin 1.5 H 0.2-1.0 mg/dL Aspartate Amino Transferase (AST) 17 13-40 U/L Alanine Aminotransferase (ALT) 16 7-40 U/L Alkaline Phosphatase 105 46-116 U/L B-Type Natriuretic Peptide 16.00 0-100 pg/mL Total Protein 7.4 5.7-8.2 g/dL Albumin 4.0 3.2-4.8 g/dL Beta-Hydroxybutyric Acid 1.686 H < 0.4 mmol/L Urine Color Red Yellow Urine Clarity Turbid H Clear Urine pH 6.0 5.0-9.0 Urine Specific [place] 1.028 1.001-1.035 Urine Protein 3+ H Negative Urine Ketones Trace Negative Urine Blood 3+ H Negative /uL Urine Nitrite Negative Negative Urine Bilirubin Negative Negative Urine Urobilinogen Normal Negative mg/dL Urine Leukocyte Esterase Trace Negative /uL Urine RBC 1535 0 - 3 /hpf Urine WBC None seen 0 - 3 /hpf Urine Squamous Epithelial Cells None seen <5 /hpf Urine Bacteria None seen None Seen /hpf Urine Glucose 4+ H Normal mg/dL Current Medications Medications (Trade) Dose Ordered Sig/Miroslava Route Start Time Stop Time Status Last Admin Insulin Human Regular (InsuLIN R) 10 units ONCE ONCE IV 04/08/24 08:30 04/08/24 08:31 DC 04/08/24 09:22 Vancomycin HCl 250 ml @ 250 mls/hr ONCE ONCE IV 04/08/24 11:15 04/08/24 12:14 04/08/24 11:37 PROCEDURE(s): CXRP - CHEST PORTABLE REASON: edema ORDER NUMBER(s): [id number], ACCESSION NUMBER(s): [id number] EXAM: XR Chest, 1 View CLINICAL INDICATION: edema TECHNIQUE: Frontal view of the chest. COMPARISON: None FINDINGS: LUNGS AND PLEURAL SPACES: Unremarkable. No consolidation. No pneumothorax. HEART: Unremarkable. No cardiomegaly. MEDIASTINUM: Unremarkable. Normal mediastinal contour. BONES/JOINTS: Unremarkable. No acute fracture. OTHER FINDINGS: . . . . IMPRESSION: No acute cardiopulmonary process. EDURE(s): BLDVT - BiLat Lower DVT REASON: ble edema ORDER NUMBER(s): [id number], ACCESSION NUMBER(s): [id number] Bilateral lower extremity venous duplex Clinical History: ble edema Comparison: US BILAT LOW EXT ART DUPLEX on DOS: 08/07/23 Technique: Duplex Doppler evaluation of the deep venous systems of both lower extremities from the common femoral veins to the popliteal veins including color Doppler and spectral/pulsed waveform analysis was performed. Findings: RIGHT SIDE: The common femoral vein demonstrates appropriate compressibility and waveform variability. There is compressibility/patency of the great saphenous vein at the proximal thigh. The femoral vein demonstrates appropriate compressibility and waveform variability. The deep femoral vein demonstrates appropriate compressibility and waveform variability. The popliteal vein demonstrates appropriate compressibility and waveform variability. LEFT SIDE: The common femoral vein demonstrates appropriate compressibility and waveform variability. There is compressibility/patency of the great saphenous vein at the proximal thigh. The femoral vein demonstrates appropriate compressibility and waveform variability. The deep femoral vein demonstrates appropriate compressibility and waveform variability. The popliteal vein demonstrates appropriate compressibility and waveform variability. Impression: No right or left femoropopliteal venous thrombosis. X-Ray, Labs, Meds, VS Comment 68-year-old male with a history of hypertension, diabetes and dyslipidemia, noncompliant with medications, complaining of hematuria and bilateral lower extremity swelling Vitals remarkable for heart rate 109, BP 135/91 Exam remarkable for mild right greater than left foot and ankle erythema and edema Rhythm strip independently interpreted by me: Sinus tach, rate 109, no ectopy. Chest x-ray unremarkable CT abdomen and pelvis: Results pending Lower extremity Doppler ultrasound negative for DVT bilaterally CBC shows white count 13.6, differential shows left shift, basic metabolic panel sodium 119, chloride 87, creatinine 1.93, glucose 804, anion gap 12 Lactate 2.3, repeat 5.9 Beta hydroxybutyrate 1.686 ABG: PH 7.397, pCO2 34.6, PO2 70.7, oxygen saturation 93% UA 3+ protein, 3+ blood, trace leukocyte esterase, 1535 RBCs, 4+ glucose Patient treated with the following in the ED: Regular insulin 10 units IV, 30 cc/kilogram IV normal saline bolus, Zosyn 4.5 g IV, vancomycin 1 g IV, patient placed on insulin drip protocol On re-evaluation, patient is resting comfortably with stable vitals. Plan is to admit the patient for glucose control, lactate trend and possible urology evaluation. Discussed with Dr. Tripp, who will evaluate the patient in the ED and assume care. Time of 1ST Reevaluation: 09:00 Reevaluation 1ST: Unchanged Patient Education/Counseling: Diagnosis, Treatment, Prognosis Family Education/Counseling: No Family Present Additional Information I reviewed the following notes from the pt's past medical encounters: 03/15/24, and 04/08/24 The following tests were ordered, and results were reviewed by me: labs, EKGS, X-Rays, PHA, US I reviewed and agreed with the following test results read by other providers: X-Ray, US I discussed treatments and results with medical personnel and: (consultants, fam, etc) Departure 1 Departure Time of Disposition: 11:39 Impression: Primary Impression: Hyperglycemia Additional Impressions: Hyponatremia Elevated lactic acid level Hematuria Qualified Codes: R31.9 - Hematuria, unspecified Disposition: 09 ADMITTED INPATIENT Admit to: Tele Condition: Serious Critical Care Note Critical Care Time?: Yes (45 min-critical care time only) Critical care comment: Critical care time including multiple bedside re-evaluations, review of lab and imaging studies, and discussion of the case with the admitting provider. Patient is high risk for metabolic decompensation. Stability Stability form required: No Heart Score Heart Score: Heart Score Response (Comments) Value History N/A 0 EKG N/A 0 Age N/A 0 Risk Factors N/A 0 Troponin N/A 0 Total 0 I personally scribed for RILEY GOLD MD ([email or web address]) on 04/08/24 at 09:03. Electronically submitted by Levi Goodson ([email or web address]). RILEY GOLD MD Apr 08, 2024 09:03
[2024-04-08] MEDS: InsuLIN REG 1unit/0.01ml Soln (100units/ml) IV ONE (09:22)
[2024-04-08 09:30] LABS: Base Excess -3.1 mmol/L (-2.0-3.0)
[2024-04-08 09:32] LABS: Urine Bacteria None Seen /hpf (None Seen); Urine WBC None Seen /hpf (0 - 3)
[2024-04-08 09:33] LABS: Basophils # (auto) 0.1 10 ^3/uL (0-0.2); Basophils % (auto) 0.6 % (0.0-2.0); Eosinophils # (auto) 0 10 ^3/uL (0-0.8); Eosinophils % (auto) 0.1 % (0.0-7.0); Hematocrit 49.8 % (41.0-53.0); Hemoglobin 16.7 g/dL (13.5-17.5); Lymphocytes # (auto) 0.7 10 ^3/uL (0.4-5.4); Lymphocytes % (auto) 5.3 % (10.0-50.0); Mean Corpuscular Hemoglobin 32.1 pg (28.0-32.0); Mean Corpuscular Hgb Conc. 33.6 g/dL (32.0-36.0); Mean Corpuscular Volume 95.7 fL (80.0-100.0); Monocytes # (auto) 0.9 10 ^3/uL (0-1.3); Monocytes % (auto) 6.6 % (0.0-12.0); Neutrophils # (auto) 11.9 10 ^3/uL (1.6-8.6); Neutrophils % (auto) 87.4 % (37.0-80.0); Nucleated Red Blood Cells % 0.1 %; Platelet Count (auto) 248 10^3/uL (140-450); Red Cell Distribution Width 13.2 % (11.8-14.3); White Blood Cell 13.6 10^3/uL (4.4-10.8)
[2024-04-08 09:41] LABS: INR 1.03 (0.9-1.15); Partial Thromboplastin Time 31.7 SEC (24.5-34.5); Prothrombin Time 10.9 sec (9.3-11.8)
[2024-04-08 09:46] LABS: Urine Blood 3+ /uL (Negative); Urine Clarity Turbid (Clear); Urine Protein, UAD 3+ (Negative); Urine Specific Gravity 1.028 (1.001-1.035); Urine Squamous Epithelial Cell None Seen /hpf (<5); Urine Urobilinogen Normal (Negative)
[2024-04-08 09:49] LABS: Urine Color RED (Yellow)
[2024-04-08 09:50] LABS: Alanine Aminotransferase 16 U/L (7-40); Alkaline Phosphatase 105 U/L (46-116); Anion Gap 12 (5-15); Aspartate Aminotransferase 17 U/L (13-40); BUN/Creatinine Ratio 7.8 (10.0-20.0); Blood Urea Nitrogen 15 mg/dL (9-23); Calcium 9.7 mg/dL (8.7-10.4); Potassium 4.6 mmol/L (3.5-5.1); Total Protein 7.4 g/dL (5.7-8.2)
[2024-04-08 09:59] LABS: Bilirubin, Total 1.5 mg/dL (0.2-1.0); Carbon Dioxide 20 mmol/L (20-31); Chloride 87 mmol/L (98-107); Sodium 119 mmol/L (136-145)
[2024-04-08 10:00] LABS: Lactic Acid w/Reflex 2.3 mmol/L (0.4-2.0)
[2024-04-08 10:01] LABS: Glucose 804 mg/dL (74-106)
[2024-04-08 10:02] VITALS: PULSE 96; RESP 18; O2SAT 96
--- NOTE | 2024-04-08 10:27 | DVH ---
Bilateral lower extremity venous duplex Clinical History: ble edema Comparison: US BILAT LOW EXT ART DUPLEX on DOS: 08/07/23 Technique: Duplex Doppler evaluation of the deep venous systems of both lower extremities from the common femora l veins to the popliteal veins including color Doppler and spectral/pulsed waveform analysis was perf ormed. Findings: RIGHT SIDE: The common femoral vein demonstrates appropriate compressibility and waveform variability. There is compressibility/patency of the great saphenous vein at the proximal thigh. The femoral vein demonstrates appropriate compressibility and waveform variability. The deep femoral vein demonstrates appropriate compressibility and waveform variability. The popliteal vein demonstrates appropriate compressibility and waveform variability. LEFT SIDE: The common femoral vein demonstrates appropriate compressibility and waveform variability. There is compressibility/patency of the great saphenous vein at the proximal thigh. The femoral vein demonstrates appropriate compressibility and waveform variability. The deep femoral vein demonstrates appropriate compressibility and waveform variability. The popliteal vein demonstrates appropriate compressibility and waveform variability. Impression: No right or left femoropopliteal venous thrombosis.
[2024-04-08] MEDS ORDERED: DEXTROSE (50%) 50ML SYRG IV PRN (11:15)
[2024-04-08] MEDS: SODIUM CHLORIDE 0.9% 2,450 ML IV ONE (11:30)
[2024-04-08] MEDS: VANCOMYCIN 1GM/250ML KIT 250 ML IV ONE (11:37)
[2024-04-08] MEDS: INSULIN LANTUS (GLARGINE) 1 /0.01ml (100units/ml) SC ONE (12:16)
[2024-04-08] MEDS: INSULIN DRIP 100 UNIT/100ML 100 ML IV SCH (12:20)
--- NOTE | 2024-04-08 12:24 | DVH ---
CLINICAL INFORMATION: 68 years old, Male; Hematuria. TECHNIQUE: Axial CT images of the abdomen and pelvis were obtained without IV contrast. Coronal and sagittal reformatted images were obtained, reviewed, and stored. Evaluation of the parenchymal organs is limited without IV contrast. Evaluation of the bowel and mesentery is limited without oral contra st. All CT scans at this medical facility are performed using dose modulation techniques as appropria te to a performed exam including the following: Automated exposure control was utilized; adjustment o f the MA and/or KV according to patient size; and use of iterative reconstruction technique. CTDIvol = 18.5 mGy DLP = 1012.19 mGy-cm COMPARISON: None FINDINGS: Lung bases: Respiratory motion artifact limits evaluation. Dependent atelectasis in the lower lobes. Liver: Grossly unremarkable in its noncontrast enhanced appearance. No abnormal density or focal les ion identified. Biliary: No calcified gallstones or biliary ductal dilatation. Spleen: Unremarkable. Pancreas: Moderately atrophic pancreas. Adrenal glands: Unremarkable. No mass. Kidneys: No hydronephrosis. No renal or ureteral calculi. Aorta/Vascular: Dense atherosclerotic calcification. No abdominal aortic aneurysm. Retroperitoneum: No mass or lymphadenopathy. Bowel/mesentery: No small bowel obstruction. No free air or free fluid. Appendix is visualized and ap pears unremarkable. Scattered colonic diverticula without adjacent inflammatory changes to suggest d iverticulitis. Pelvic organs: Grossly unremarkable. Bladder: Moderate to marked wall thickening of the bladder with gas within the bladder wall and withi n the lumen of the bladder, consistent with emphysematous cystitis. Abdominal wall: Small fat containing umbilical hernia. Bones: No acute fracture or suspicious intraosseous lesion. IMPRESSION: 1. Bladder wall thickening and extensive gas within the bladder wall and within the lumen of the blad bharathi consistent with emphysematous cystitis. 2. Additional findings as detailed above.
[2024-04-08] MEDS: ACCU-CHEK COMFORT CURVE STRIP VI SCH (12:27)
[2024-04-08 13:00] VITALS: BP 137/89; PULSE 91; RESP 18; TEMP 97.9; O2SAT 96
[2024-04-08] MEDS: PIPERACILLIN-TAZO 4.5GM 100 ML IV ONE (13:17)
[2024-04-08 13:54] LABS: Basophils # (auto) 0.1 10 ^3/uL (0-0.2); Basophils % (auto) 0.5 % (0.0-2.0); Eosinophils # (auto) 0 10 ^3/uL (0-0.8); Hematocrit 47.7 % (41.0-53.0); Hemoglobin 16.3 g/dL (13.5-17.5); Lymphocytes # (auto) 0.9 10 ^3/uL (0.4-5.4); Lymphocytes % (auto) 5.2 % (10.0-50.0); Mean Corpuscular Hemoglobin 32.5 pg (28.0-32.0); Mean Corpuscular Hgb Conc. 34.1 g/dL (32.0-36.0); Mean Corpuscular Volume 95.1 fL (80.0-100.0); Monocytes # (auto) 0.9 10 ^3/uL (0-1.3); Monocytes % (auto) 5.3 % (0.0-12.0); Neutrophils # (auto) 14.8 10 ^3/uL (1.6-8.6); Platelet Count (auto) 256 10^3/uL (140-450); Red Blood Cells 5.01 10^6/uL (4.5-5.90); Red Cell Distribution Width 12.9 % (11.8-14.3); White Blood Cell 16.7 10^3/uL (4.4-10.8)
[2024-04-08 14:13] LABS: Alanine Aminotransferase 14 U/L (7-40); Albumin 3.9 g/dL (3.2-4.8); Alkaline Phosphatase 99 U/L (46-116); Anion Gap 12 (5-15); Aspartate Aminotransferase 18 U/L (13-40); BUN/Creatinine Ratio 8.5 (10.0-20.0); Blood Urea Nitrogen 15 mg/dL (9-23); Calcium 9.7 mg/dL (8.7-10.4); Carbon Dioxide 22 mmol/L (20-31); Potassium 3.9 mmol/L (3.5-5.1)
[2024-04-08 14:14] LABS: Total Protein 7.1 g/dL (5.7-8.2)
[2024-04-08 14:15] LABS: Bilirubin, Total 1.6 mg/dL (0.2-1.0); Chloride 92 mmol/L (98-107); Sodium 126 mmol/L (136-145)
[2024-04-08 14:17] LABS: Glucose 534 mg/dL (74-106)
--- NOTE | 2024-04-09 07:03 | ECG ---
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
[2024-04-09] MEDS ORDERED: INSULIN LANTUS (GLARGINE) 1 /0.01ml (100units/ml) SC SCH (10:00)
== END 2024-04-08 14:30 | disposition left against medical advice (07) ==
LOC: ER 07:36
DX: E87.1 Hypo-osmolality and hyponatremia (principal); E11.65 Type 2 diabetes mellitus with hyperglycemia; E87.20 Acidosis, unspecified; R60.0 Localized edema; R31.9 Hematuria, unspecified; E78.5 Hyperlipidemia, unspecified; F17.200 Nicotine dependence, unspecified, uncomplicated; I25.2 Old myocardial infarction; Z79.84 Long term (current) use of oral hypoglycemic drugs; Z79.899 Other long term (current) drug therapy
CPT/HCPCS: 36415; 36600; 71045; 74176; 80053; 81001; 82010; 82805; 83605; 83880; 84484; 85025; 85610; 85730; 87040; 87077; 87086; 87186; 93005; 93970; 96365; 96366; 96367; 96368; 96372; 96375; 99285; J1815; J2543; J3370; J7030; J7040

== ENCOUNTER 2024-04-10 13:26 | Observation (INO) | payer OTHER ==
[~2024-04-10] VITALS: Ht 188 cm; Wt 96.5 kg
--- NOTE | 2024-04-10 13:52 | ECG ---
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
[2024-04-10] MEDS: SODIUM CHLORIDE 0.9% 500 ML IV ONE (15:15)
--- NOTE | 2024-04-10 15:34 | DVH ---
EXAM: CT PELVIS WO CONTRAST INDICATION: pain EXAM DATE: 04/10/2024 02:54 PM COMPARISON: CT CT L FOOT WO CONTRAST on DOS: 08/06/23 TECHNIQUE: Multiple axial CT images of the pelvis were obtained using bone algorithm. Axial and coron al reformatting was done. Bone and soft tissue windows were reviewed. Radiation Dose Information: CT Dose: CTDI volume is 27.95 mGy. Dose-length product is 1079.19 mGy*cm Findings: Lack of intravenous contrast limits evaluation of solid organs and vasculature. No evidence of an acute fracture, dislocation, blastic, lytic, or osseous destructive lesions. No sup erficial soft tissue abnormalities. Distended urinary bladder with intraluminal and intramural gas. The distal ureters, prostate and semi nal vesicles are unremarkable. No dilatation of the visualized portion of the bowel. No intraluminal free fluid. Diverticulosis. Impression: 1. No acute osseous abnormality. 2. Distended urinary bladder with intraluminal and intramural gas favored to reflect emphysematous cy stitis.
--- NOTE | 2024-04-10 15:50 | ED.PDOC ---
History of Present Illness HPI Comments 68 y.o male with PMH of HDL, HTN, and DM, presents to the ED via EMS for an evaluation of leg weakness that started 2 days ago. Patient reports he fell 2 days ago as well while ambulating to the bathroom, was assisted back up by family member onto the couch and since has complained of buttocks pain. Patient denies any head injury or LOC. Patient received 500 CC of NS and blood glucose read HI for EMS on scene. No fever, chills, nausea, vomiting, chest pain or SOB reported. Chief Complaint: General Weakness Time Seen by MD: 14:26 Primary Care Provider: NONE Reviewed Notes: Nurses Notes, Rubber Turner Notes, Medications, Allergies Allergies: Coded Allergies: NO KNOWN ALLERGIES (Unverified , 08/06/23) Home Meds Active Scripts Clotrimazole (Lotrimin) 1 Applic Ap, 1 APPLIC TOP BID for 15 Days, APPLIC Prov:WILBER TINEO RESIDENT 08/12/23 Clindamycin Hcl (Clindamycin Hcl) 300 Mg Cap, 300 MG PO TID for 14 Days, CAP Prov:WILBER TINEO RESIDENT 08/12/23 Reported Medications Atorvastatin Calcium (ATORVASTATIN CALCIUM) 10 Mg Tab, 1 TAB PO DAILY, #30 TAB 5 Refills 08/07/23 Losartan Potassium (Losartan Potassium) 50 Mg Tab, 50 MG PO DAILY for 30 Days, MG 08/07/23 Amlodipine Besylate (Amlodipine Besylate) 5 Mg Tab, 5 MG PO DAILY for 30 Days, MG 08/07/23 Metoprolol Succinate (Metoprolol Succinate Er) 50 Mg Tab, 50 MG PO DAILY for 30 Days, MG 08/07/23 Metformin Hydrochloride (Metformin Hcl) 850 Mg Tab, 850 MG PO TID for 30 Days, MG 08/07/23 Information Source: Patient, Emergency Med Personnel Mode of Arrival: EMS Severity: Moderate Timing: Days (2) Duration: Since onset Prehospital treatment: 12 Lead EKG, Director Of Software Development, IVF (500 cc NS ) Past Medical History PAST MEDICAL HISTORY: DM, High Lipids, HTN Surgical History: Tonsillectomy Family History Family History: Reviewed,noncontributory to illness, Unknown Social History Smoker: Non-Smoker Alcohol: Occasionally Drugs: Denies Drug Use Lives In: Home Constitutional: denies: chills, diaphoresis, fatigue, fever, malaise, sweats, weakness, others EENTM: denies: blurred vision, double vision, ear bleeding, ear discharge, ear drainage, ear pain, ear ringing, eye pain, eye redness, hearing loss, mouth pain, mouth swelling, nasal discharge, nose bleeding, nose congestion, nose pain, photophobia, tearing, throat pain, throat swelling, voice changes, others Respiratory: denies: cough, hemoptysis, orthopnea, SOB at rest, shortness of breath, SOB with excertion, stridor, wheezing, others Cardiovascular: denies: chest pain, dizzy spells, diaphoresis, Dyspnea on exertion, edema, irregular heart beat, left arm pain, lightheadedness, palpitations, PND, syncope, others Gastrointestinal: denies: abdomen distended, abdominal pain, blood streaked bowels, constipated, diarrhea, dysphagia, difficulty swallowing, hematemesis, melena, nausea, poor appetite, poor fluid intake, rectal bleeding, rectal pain, vomiting, others Genitourinary: denies: burning, dysuria, flank pain, frequency, hematuria, incontinence, penile discharge, penile sore, pain, testicle pain, testicle swelling, urgency, others Neurological: reports: weakness (legs ); denies: dizziness, fainting, headache, left sided numbness, left sided weakness, numbness, paresthesia, pre-existing deficit, right sided numbness, right sided weakness, seizure, speech problems, tingling, tremors, others Musculoskeletal: reports: others (buttocks pain ); denies: back pain, gout, joint pain, joint swelling, muscle pain, muscle stiffness, neck pain Integumetry: denies: bruises, change in color, change in hair/nails, dryness, laceration, lesions, lumps, rash, wounds, others Allergic/Immunocompromised: denies: Difficulty Healing, Frequent Infections, Hives, Itching, others Hematologic/Lymphatic: denies: anemia, blood clots, easy bleeding, easy bruising, swollen glands, others Endocrine: denies: excessive hunger, excessive sweating, excessive thirst, excessive urination, flushing, intolerance to cold, intolerance to heat, unexplained weight gain, unexplained weight loss, others Psychiatric: denies: anxiety, bipolar disorder, depression, hopeless, panic disorder, schizophrenia, sleepless, suicidal, others All Other Systems: Reviewed and Negative Physical Exam General Appearance: Moderate Distress HEENT: Normal ENT Inspection, Pharynx Normal, TMs Normal Neck: Full Range of Motion, Non-Tender, Normal, Normal Inspection Respiratory: Chest Non-Tender, Lungs Clear, No Accessory Muscle Use, No Respiratory Distress, Normal Breath Sounds Cardiovascular: No Edema, No JVD, No Murmur, No Gallop, Normal Peripheral Pulses, Regular Rate/Rhythm Breast Exam: Deferred Gastrointestinal: No Organomegaly, Non Tender, No Pulsatile Mass, Normal Bowel Sounds, Soft Genitalia: Deferred Pelvic: Deferred Rectal: Deferred Extremities: Decreased range of motion, No calf tenderness, Normal capillary refill, No pedal edema, Other (Redness to the lower extremities) Musculoskeletal : Apperance: Normal Neurologic: Alert, furnace cooler II-XII nml as Tested, Motor Weakness, Normal Affect, Normal Mood, No Sensory Deficits Cerebellar Function: Unable to Test Reflexes: Normal Skin: Dry, Normal Color, Warm Lymphatic: No Adenopathy Was a procedure done? Was a procedure done?: No Differential Dx Considerations may include: Dehydration, Electrolyte imbalance, Peripheral neuropathy, Amyotrophic lateral sclerosis, Guillain-[place] syndrome, Multiple sclerosis X-Ray, Labs, Meds, VS Vital Signs Date Time Temp Pulse Resp B/P (MAP) Pulse Ox O2 Delivery O2 Flow Rate FiO2 04/10/24 13:45 83 04/10/24 13:30 94.5 85 20 169/102 (124) 95 Lab Test 04/10/24 16:05 Range/Units White Blood Count 13.4 H 4.4-10.8 10^3/uL Red Blood Count 5.09 4.5-5.90 10^6/uL Hemoglobin 16.4 13.5-17.5 g/dL Hematocrit 48.6 41.0-53.0 % Mean Corpuscular Volume 95.4 80.0-100.0 fL Mean Corpuscular Hemoglobin 32.3 H 28.0-32.0 pg Mean Corpuscular Hemoglobin Concent 33.8 32.0-36.0 g/dL Red Cell Distribution Width 12.9 11.8-14.3 % Platelet Count 235 140-450 10^3/uL Mean Platelet Volume 9.8 6.9-10.8 fL Neutrophils (%) (Auto) 78.1 37.0-80.0 % Lymphocytes (%) (Auto) 11.2 10.0-50.0 % Monocytes (%) (Auto) 9.9 0.0-12.0 % Eosinophils (%) (Auto) 0.5 0.0-7.0 % Basophils (%) (Auto) 0.3 0.0-2.0 % Neutrophils # (Auto) 10.5 H 1.6-8.6 10 ^3/uL Lymphocytes # (Auto) 1.5 0.4-5.4 10 ^3/uL Monocytes # (Auto) 1.3 0-1.3 10 ^3/uL Eosinophils # (Auto) 0.1 0-0.8 10 ^3/uL Basophils # (Auto) 0 0-0.2 10 ^3/uL Nucleated Red Blood Cells 0.1 % Sodium Level 128 L 136-145 mmol/L Potassium Level 3.9 3.5-5.1 mmol/L Chloride Level 95 L 98-107 mmol/L Carbon Dioxide Level 22 20-31 mmol/L Anion Gap 11 5-15 Blood Urea Nitrogen 18 9-23 mg/dL Creatinine 1.74 H 0.700-1.30 mg/dL Glomerular Filtration Rate Calc 42 >90 mL/min BUN/Creatinine Ratio 10.3 10.0-20.0 Serum Glucose 534 *H 74-106 mg/dL Calcium Level 9.4 8.7-10.4 mg/dL B-Type Natriuretic Peptide 85.08 0-100 pg/mL Current Medications Medications (Trade) Dose Ordered Sig/Miroslava Route Start Time Stop Time Status Last Admin Sodium Chloride 500 ml @ 500 mls/hr Q1H ONCE IV 04/10/24 14:45 04/10/24 15:44 DC 04/10/24 15:15 EXAM: CT PELVIS WO CONTRAST Impression: 1. No acute osseous abnormality. 2. Distended urinary bladder with intraluminal and intramural gas favored to reflect emphysematous cystitis. IV Hep-Lock was established The patient's blood sugar was 534 The patient was being given insulin as well as normal saline as a 500 cc bolus The patient recently had an ultrasound done of both lower extremities which were previously and negative. The patient had a CBC with an elevated white blood cell count of 13.4 The chemistry panel shows mild hyponatremia at 128 The patient was being admitted at this time The hospitalist came in and evaluated the patient and the patient will be admitted at this time. Images Reviewed?: Images reviewed and evaluated by me Time of 1ST Reevaluation: 15:49 Reevaluation 1ST: Unchanged Patient Education/Counseling: Diagnosis, Treatment, Prognosis Family Education/Counseling: No Family Present Departure 1 Departure Time of Disposition: 18:34 Impression: Primary Impression: Hyponatremia Additional Impressions: Hyperglycemia Generalized weakness Disposition: 09 ADMITTED INPATIENT Admit to: Tele Condition: Fair Critical Care Note Critical Care Time?: Yes (35 min-critical care time only) Stability Stability form required: Yes Unstable for transfer: Telemetry monitoring (Telemetry monitoring required), ED Physician Assesment (Clinical assesment) I personally scribed for ABDOUL JOE MD ([email or web address]) on 04/10/24 at 15:50. Electronically submitted by Azra Pride ([facility]). I personally scribed for ABDOUL JOE MD ([email or web address]) on 04/10/24 at 16:32. Electronically submitted by Azra Pride ([facility]). ABDOUL JOE MD Apr 10, 2024 15:50
[2024-04-10 16:33] LABS: Basophils # (auto) 0 10 ^3/uL (0-0.2); Basophils % (auto) 0.3 % (0.0-2.0); Eosinophils # (auto) 0.1 10 ^3/uL (0-0.8); Eosinophils % (auto) 0.5 % (0.0-7.0); Hematocrit 48.6 % (41.0-53.0); Hemoglobin 16.4 g/dL (13.5-17.5); Lymphocytes # (auto) 1.5 10 ^3/uL (0.4-5.4); Lymphocytes % (auto) 11.2 % (10.0-50.0); Mean Corpuscular Hemoglobin 32.3 pg (28.0-32.0); Mean Corpuscular Hgb Conc. 33.8 g/dL (32.0-36.0); Mean Corpuscular Volume 95.4 fL (80.0-100.0); Monocytes # (auto) 1.3 10 ^3/uL (0-1.3); Monocytes % (auto) 9.9 % (0.0-12.0); Neutrophils # (auto) 10.5 10 ^3/uL (1.6-8.6); Neutrophils % (auto) 78.1 % (37.0-80.0); Nucleated Red Blood Cells % 0.1 %; Platelet Count (auto) 235 10^3/uL (140-450); Red Blood Cells 5.09 10^6/uL (4.5-5.90); Red Cell Distribution Width 12.9 % (11.8-14.3); White Blood Cell 13.4 10^3/uL (4.4-10.8)
[2024-04-10 16:44] LABS: Potassium 3.9 mmol/L (3.5-5.1)
[2024-04-10 16:45] LABS: Anion Gap 11 (5-15); Carbon Dioxide 22 mmol/L (20-31)
[2024-04-10 16:46] LABS: Calcium 9.4 mg/dL (8.7-10.4)
[2024-04-10 16:51] LABS: BUN/Creatinine Ratio 10.3 (10.0-20.0); Blood Urea Nitrogen 18 mg/dL (9-23)
[2024-04-10 16:52] LABS: Chloride 95 mmol/L (98-107); Sodium 128 mmol/L (136-145)
[2024-04-10 16:56] LABS: Glucose 534 mg/dL (74-106)
[2024-04-10] MEDS: InsuLIN REG 1unit/0.01ml Soln (100units/ml) IV ONE (18:15)
[2024-04-10] MEDS ORDERED: ACETAMINOPHEN 325 MG TAB PO PRN (18:30)
[2024-04-10] MEDS ORDERED: HYDROcodone-ACET 5/325MG TAB PO PRN (18:30)
[2024-04-10] MEDS ORDERED: TEMAZEPAM 15 MG CAP PO PRN (18:30)
[2024-04-10] MEDS ORDERED: NITROGLYCERIN 0.4 MG SL TAB SL PRN (18:30)
[2024-04-10] MEDS ORDERED: MORPHINE SULFATE INJ 2 MG/ml SYRG IV PRN ×2 (18:30)
[2024-04-10] MEDS: SODIUM CHLORIDE 0.9% 1,000 ML IV SCH (18:30)
[2024-04-10] MEDS ORDERED: ERTAPENEM SOD INJ 1 GM in SODIUM CHL 0.9% 50 ML IV ONE (18:45)
[2024-04-10] MEDS ORDERED: DEXTROSE (50%) 50ML SYRG IV PRN (18:45)
--- NOTE | 2024-04-10 18:51 | DVHHP2 ---
Admitting Diagnosis: Generalized Weakness History of Present Illness HPI Patient is a 68-year-old male with past medical history of atrial fibrillation, type 2 diabetes, hypertension who presents with worsening lower extremity weakness over the past two days. Patient was recently seen twice in the ER but had left AMA both times despite excessive and lengthy discussions. Patient states he presented today because his lower extremity weakness worsened. Patient notes he is been having incontinence for several days with associated hematuria. Patient is able to move his lower extremities but notes that he fatigues easily. Patient was able to demonstrate this in front of me. Patient notes that he ran out of his medications and has not been seeing his PCP. Patient appears very disheveled and appears that he struggles to care for h imself. Patient presented to the ER with hyperglycemia in the 500s. Renal function has been stable comparison to the prior days. CT of the abdomen was notable for emphysematous cystitis. Prior urine cultures did not show any growth. Patient will need physical therapy and possible sniff placement which he is open to. Home Meds Active Scripts Clotrimazole (Lotrimin) 1 Applic Ap, 1 APPLIC TOP BID for 15 Days, APPLIC Prov:WILBER TINEO RESIDENT 08/12/23 Clindamycin Hcl (Clindamycin Hcl) 300 Mg Cap, 300 MG PO TID for 14 Days, CAP Prov:WILBER TINEO RESIDENT 08/12/23 Reported Medications Atorvastatin Calcium (ATORVASTATIN CALCIUM) 10 Mg Tab, 1 TAB PO DAILY, #30 TAB 5 Refills 08/07/23 Losartan Potassium (Losartan Potassium) 50 Mg Tab, 50 MG PO DAILY for 30 Days, MG 08/07/23 Amlodipine Besylate (Amlodipine Besylate) 5 Mg Tab, 5 MG PO DAILY for 30 Days, MG 08/07/23 Metoprolol Succinate (Metoprolol Succinate Er) 50 Mg Tab, 50 MG PO DAILY for 30 Days, MG 08/07/23 Metformin Hydrochloride (Metformin Hcl) 850 Mg Tab, 850 MG PO TID for 30 Days, MG 08/07/23 Past Medical History Cardiac: AFIB, HTN Endocrine: NIDDM Patient Family History: FH: heart disease G8 FATHER Review of Systems Constitutional: Weakness Genitourinary: Incontinence H&P Exam Vital Signs Vital Signs Date Time Temp Pulse Resp B/P (MAP) Pulse Ox O2 Delivery O2 Flow Rate FiO2 04/10/24 13:45 83 04/10/24 13:30 94.5 20 169/102 (124) 95 General Appeara: Other (discheveled) Cardiovascular/Chest: Irregularly irregular Tendon/ Neuro: Normal motor function Motor/Sensory: Normal motor function Neuro/Mental St: Alert, Oriented Eye contact/ Speech: Cooperative Labs/Xrays Labs Test 04/10/24 16:05 Range/Units White Blood Count 13.4 H 4.4-10.8 10^3/uL Red Blood Count 5.09 4.5-5.90 10^6/uL Hemoglobin 16.4 13.5-17.5 g/dL Hematocrit 48.6 41.0-53.0 % Mean Corpuscular Volume 95.4 80.0-100.0 fL Mean Corpuscular Hemoglobin 32.3 H 28.0-32.0 pg Mean Corpuscular Hemoglobin Concent 33.8 32.0-36.0 g/dL Red Cell Distribution Width 12.9 11.8-14.3 % Platelet Count 235 140-450 10^3/uL Mean Platelet Volume 9.8 6.9-10.8 fL Neutrophils (%) (Auto) 78.1 37.0-80.0 % Lymphocytes (%) (Auto) 11.2 10.0-50.0 % Monocytes (%) (Auto) 9.9 0.0-12.0 % Eosinophils (%) (Auto) 0.5 0.0-7.0 % Basophils (%) (Auto) 0.3 0.0-2.0 % Neutrophils # (Auto) 10.5 H 1.6-8.6 10 ^3/uL Lymphocytes # (Auto) 1.5 0.4-5.4 10 ^3/uL Monocytes # (Auto) 1.3 0-1.3 10 ^3/uL Eosinophils # (Auto) 0.1 0-0.8 10 ^3/uL Basophils # (Auto) 0 0-0.2 10 ^3/uL Nucleated Red Blood Cells 0.1 % Sodium Level 128 L 136-145 mmol/L Potassium Level 3.9 3.5-5.1 mmol/L Chloride Level 95 L 98-107 mmol/L Carbon Dioxide Level 22 20-31 mmol/L Anion Gap 11 5-15 Blood Urea Nitrogen 18 9-23 mg/dL Creatinine 1.74 H 0.700-1.30 mg/dL Glomerular Filtration Rate Calc 42 >90 mL/min BUN/Creatinine Ratio 10.3 10.0-20.0 Serum Glucose 534 *H 74-106 mg/dL Calcium Level 9.4 8.7-10.4 mg/dL B-Type Natriuretic Peptide 85.08 0-100 pg/mL Assessment/Plan Primary Diagnosis 1. Generalized Weakness 2' Diagnosis/Co-morbidities 2. Atrial Fibrillation 3. Hypercoagulable State 4. Type 2 Diabetes 5. Hypertension 6. CKD 7. Emphysematous Cystitis Plan Admit to telemetry. Ertapenem 1 g IV qdaily for emphysematous cystitis. Previous urine cultures did not show any growth. Patient noted to have some leukocytosis that may be caused by his underlying presentation. Strict Is&Os. No schwab at this time. Normal saline at 60 mL/hr. Insulin sliding scale. Glargine 10 units at bedtime. Hemoglobin A1c ordered. Holding anticoagulants for atrial fibrillation given hematuria history. Antihypertensives restarted. MRI lumbar spine without contrast ordered to evaluate lower extremity weakness. Physical examination not consistent with cauda equina or red flag symptoms. Pain medications as listed in MAR. Physical therapy consulted. Case management consulted for SNF placement. Full Code. Plan discussed with: Patient TONY COCHRAN Apr 10, 2024 18:51
--- NOTE | 2024-04-10 19:43 | DVH ---
INDICATION: Emphysematous cystitis with incontinence TECHNIQUE: Multiple real-time sonographic images of the kidneys and bladder were obtained. COMPARISON: None FINDINGS: The right kidney measures 11.3 cm in length, which is normal in size. There is normal echogenicity of the right kidney. No hydronephrosis. The left kidney measures 10.6 cm in length, which is normal in size. There is normal echogenicity of the left kidney. No hydronephrosis. Distended urinary bladder demonstrates diffuse wall thickening measuring up to 7 mm. Prevoid urinary bladder volumes of 989 mL. There is evidence of layering debris at the base of the urinary bladder. U rinary bladder diverticula noted. Foci of air throughout the urinary bladder wall. IMPRESSION: No sonographic evidence of acute renal abnormalities. Urinary bladder findings concerning for emphysematous cystitis. Surgical consultation recommended.
[2024-04-11] VITALS (8 sets, daily range): BP systolic 113–159; BP diastolic 73–90; PULSE 69–85; RESP 13–21; TEMP 36.3; O2SAT 94–98
[2024-04-11] MEDS: ACCU-CHEK COMFORT CURVE STRIP VI SCH ×2 (00:32→11:21)
[2024-04-11] MEDS: InsuLIN REG 1unit/0.01ml Soln (100units/ml) SC SCH ×3 (00:52→21:46)
[2024-04-11] MEDS: INSULIN LANTUS (GLARGINE) 1 /0.01ml (100units/ml) SC SCH (00:55)
[2024-04-11] MEDS: ERTAPENEM SOD 1 GM INJ VIAL ONE (01:27)
[2024-04-11] MEDS: ERTAPENEM SOD INJ 1 GM in SODIUM CHL 0.9% 50 ML IV ONE (01:36)
[2024-04-11] MEDS: hydrALAZINE HCL 20 MG/ML VL IV PRN (01:37)
[2024-04-11 01:48] LABS: Urine Bacteria MANY /hpf (None Seen); Urine Blood 3+ /uL (Negative); Urine Budding Yeast OCCASIONAL /hpf (None Seen); Urine Clarity Turbid (Clear); Urine Color Light-Brown (Yellow); Urine Protein, UAD 2+ (Negative); Urine Specific Gravity 1.028 (1.001-1.035); Urine Urobilinogen Normal (Negative); Urine WBC 36 /hpf (0 - 3); Urine pH 5.5 (5.0-9.0)
[2024-04-11 05:27] LABS: Basophils # (auto) 0.1 10 ^3/uL (0-0.2); Eosinophils # (auto) 0.1 10 ^3/uL (0-0.8); Eosinophils % (auto) 1.3 % (0.0-7.0); Hematocrit 46.5 % (41.0-53.0); Lymphocytes # (auto) 1.2 10 ^3/uL (0.4-5.4); Lymphocytes % (auto) 12.1 % (10.0-50.0); Mean Corpuscular Hemoglobin 32.2 pg (28.0-32.0); Mean Corpuscular Hgb Conc. 34.3 g/dL (32.0-36.0); Mean Corpuscular Volume 93.8 fL (80.0-100.0); Monocytes % (auto) 10.2 % (0.0-12.0); Neutrophils # (auto) 7.6 10 ^3/uL (1.6-8.6); Neutrophils % (auto) 75.4 % (37.0-80.0); Platelet Count (auto) 247 10^3/uL (140-450); Red Blood Cells 4.96 10^6/uL (4.5-5.90); Red Cell Distribution Width 13.2 % (11.8-14.3); White Blood Cell 10.1 10^3/uL (4.4-10.8)
[2024-04-11 05:54] LABS: Alanine Aminotransferase 14 U/L (7-40); Albumin 3.4 g/dL (3.2-4.8); Alkaline Phosphatase 81 U/L (46-116); Anion Gap 10 (5-15); Aspartate Aminotransferase 19 U/L (13-40); BUN/Creatinine Ratio 13.5 (10.0-20.0); Bilirubin, Total 0.5 mg/dL (0.2-1.0); Blood Urea Nitrogen 21 mg/dL (9-23); Calcium 9.2 mg/dL (8.7-10.4); Carbon Dioxide 24 mmol/L (20-31); Chloride 99 mmol/L (98-107); Glucose 333 mg/dL (74-106); Potassium 3.7 mmol/L (3.5-5.1); Sodium 133 mmol/L (136-145); Total Protein 6.3 g/dL (5.7-8.2)
[2024-04-11] MEDS ORDERED: ERTAPENEM SOD INJ 1 GM in SODIUM CHL 0.9% 50 ML IV ONE (09:15)
[2024-04-11] MEDS: METOPROLOL SUCCINATE XL 50 MG TAB PO SCH (09:34)
[2024-04-11] MEDS ORDERED: DEXTROSE (50%) 50ML SYRG IV PRN (10:00)
[2024-04-11] MEDS ORDERED: LOSARTAN POTASSIUM 50 MG TAB PO SCH (10:00)
--- NOTE | 2024-04-11 10:44 | DVH ---
MRI LUMBAR SPINE CLINICAL HISTORY: Lower extremity weakness TECHNIQUE: Multi planar, multi sequence MR images of the lumbar spine without intravenous contrast. Comparison: MRI MRI L FOOT WO CONTRAST on DOS: 08/07/23 FINDINGS: The conus terminates at an appropriate level and demonstrates normal caliber and signal. The vertebra l bodies demonstrate normal height and marrow signal. The lumbar spinal canal appears congenitally sm all in caliber with short lumbar pedicles. The sagittal alignment is anatomic. There is disc desiccat ion throughout with moderate disc space narrowing. The. Spinal soft tissues appear within normal li mits. At L1-L2 there is disc bulge and mild facet arthropathy. There is no spinal canal stenosis. There is mild bilateral neural foraminal stenosis. At L2-L3 there is diffuse disc bulge and bilateral facet arthropathy with mild ligamentum flavum thic kening. There is mild central canal stenosis narrowing of the lateral recesses. There is mild bilater al foraminal stenosis. At L3-L4 there is diffuse disc bulge and bilateral facet arthropathy with ligamentum flavum thickenin g. There is mild central canal stenosis. There is mild right and moderate left neural foraminal sten osis. At L4-L5 there is disc bulge and bilateral facet arthropathy. There is indentation of the ventral the tara sac without significant central canal stenosis. There is [id number] right and mild left romy ral foraminal stenosis. At L5-S1 there is posterior disc osteophyte complex and bilateral facet arthropathy. There is no sign ificant spinal canal stenosis. There is moderate bilateral neural foraminal stenosis. IMPRESSION: 1. Multilevel degenerative changes in the lumbar spine as described by levels above. There is mild ce ntral canal stenosis at L2-L3 and L3-L4. 2. 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 HS:Y
[2024-04-11] MEDS: cefTRIAXone 1GM/50ML D5W 50 ML IV ONE (11:20)
[2024-04-11] MEDS: LOSARTAN POTASSIUM 50 MG TAB PO SCH (11:21)
[2024-04-11 13:24] LABS: Amphetamine Screen, Urine Neg (NEGATIVE); Barbiturate Scree,Urine Neg (NEGATIVE); Benzodiazephine Screen, Urine Neg (NEGATIVE); Cannabinoid Screen, Urine Neg (NEGATIVE); Cocaine Screen, Urine Neg (NEGATIVE); Opiate Scree,Urine Neg (NEGATIVE); Phencyclidine Screen, Urine Neg (NEGATIVE)
--- NOTE | 2024-04-11 13:27 | DVHINCON2 ---
Date of service: Apr 11, 2024 Referring Physician Hospitalist Reason for Consultation Emphysematous cystitis History of Present Illness 68 y.o male with PMH of HDL, HTN, and DM, presents to the ED via EMS for an evaluation of leg weakness that started 2 days ago. Patient reports he fell 2 days ago as well while ambulating to the bathroom, was assisted back up by family member onto the couch and since has complained of buttocks pain. Patient denies any head injury or LOC. Patient received 500 CC of NS and blood glucose read HI for EMS on scene. No fever, chills, nausea, vomiting, chest pain or SOB reported. Chief Complaint: General Weakness Primary Care Provider: NONE Reviewed Notes: Nurses Notes, Outreach Nurse Notes, Medications, Allergies Allergies: Coded Allergies: NO KNOWN ALLERGIES (Unverified , 08/06/23) Home Meds Active Scripts Clotrimazole (Lotrimin) 1 Applic Ap, 1 APPLIC TOP BID for 15 Days, APPLIC Prov:WILBER TINEO RESIDENT 08/12/23 Clindamycin Hcl (Clindamycin Hcl) 300 Mg Cap, 300 MG PO TID for 14 Days, CAP Prov:WILBER TINEO RESIDENT 08/12/23 Reported Medications Atorvastatin Calcium (ATORVASTATIN CALCIUM) 10 Mg Tab, 1 TAB PO DAILY, #30 TAB 5 Refills 08/07/23 Losartan Potassium (Losartan Potassium) 50 Mg Tab, 50 MG PO DAILY for 30 Days, MG 08/07/23 Amlodipine Besylate (Amlodipine Besylate) 5 Mg Tab, 5 MG PO DAILY for 30 Days, MG 08/07/23 Metoprolol Succinate (Metoprolol Succinate Er) 50 Mg Tab, 50 MG PO DAILY for 30 Days, MG 08/07/23 Metformin Hydrochloride (Metformin Hcl) 850 Mg Tab, 850 MG PO TID for 30 Days, MG 08/07/23 Information Source: Patient, Emergency Med Personnel Mode of Arrival: EMS Severity: Moderate Timing: Days (2) Duration: Since onset Prehospital treatment: 12 Lead EKG, Systems Security Analyst, IVF (500 cc NS ) Past Medical History DM, High Lipids, HTN Past Surgical History Tonsillectomy Family History: FH: heart disease G8 FATHER, , Age: 50's - 60 Allergies: Coded Allergies: NO KNOWN ALLERGIES (Unverified , 08/06/23) Home Meds Active Scripts Clotrimazole (Lotrimin) 1 Applic Ap, 1 APPLIC TOP BID for 15 Days, APPLIC Prov:ABELARDOWILBER ORELLANA RESIDENT 08/12/23 Clindamycin Hcl (Clindamycin Hcl) 300 Mg Cap, 300 MG PO TID for 14 Days, CAP Prov:WILBER TINEO RESIDENT 08/12/23 Reported Medications Atorvastatin Calcium (ATORVASTATIN CALCIUM) 10 Mg Tab, 1 TAB PO DAILY, #30 TAB 5 Refills 08/07/23 Losartan Potassium (Losartan Potassium) 50 Mg Tab, 50 MG PO DAILY for 30 Days, MG 08/07/23 Amlodipine Besylate (Amlodipine Besylate) 5 Mg Tab, 5 MG PO DAILY for 30 Days, MG 08/07/23 Metoprolol Succinate (Metoprolol Succinate Er) 50 Mg Tab, 50 MG PO DAILY for 30 Days, MG 08/07/23 Metformin Hydrochloride (Metformin Hcl) 850 Mg Tab, 850 MG PO TID for 30 Days, MG 08/07/23 Current Medications Current Medications Medications (Trade) Dose Ordered Sig/Miroslava Route PRN Reason Start Time Stop Time Status Last Admin Sodium Chloride 1,000 ml @ 60 mls/hr [id number] IV 04/10/24 18:30 04/11/24 11:39 Acetaminophen (Tylenol Tablet) 325 mg Q4HP PRN PO MILD PAIN (1-3 PAIN SCALE) 04/10/24 18:30 Acetaminophen/ Hydrocodone Bitart (Louise 5/325MG Tab) 1 tab Q4HP PRN PO MODERATE PAIN (4-6 PAIN SCALE) 04/10/24 18:30 Temazepam (Restoril) 15 mg QHSP PRN PO FOR INSOMNIA 04/10/24 18:30 Morphine Sulfate 2 mg Q4HPRN PRN IV SEVERE PAIN (7-10 PAIN SCALE) 04/10/24 18:30 Nitroglycerin (Ntrostat Sublingual) 0.4 mg Q5MINP PRN SL FOR CHEST PAIN 04/10/24 18:30 Morphine Sulfate 2 mg Q30M PRN IV FOR CHEST PAIN 04/10/24 18:30 Diagnostic Test (Pha) (Accu-Chek Comfort Curve T) 1 strip ACHS 04/10/24 22:00 04/11/24 09:51 DC 04/11/24 06:02 Insulin Human Regular (InsuLIN R) ACHS SC 04/10/24:00 04/11/24 09:51 DC 04/11/24 06:46 Dextrose 50 ml UD PRN IV Blood Sugar LESS THAN 60 04/10/24 18:45 04/11/24 09:51 DC Insulin Glargine (Lantus) 10 units HS IL 04/10/24 22:00 04/11/24 00:55 Losartan Potassium (Cozaar Tablet) 50 mg DAILY PO 04/11/24 10:00 04/11/24 09:17 DC Metoprolol Succinate (Toprol Xl) 50 mg DAILY PO 04/11/24 10:00 04/11/24 09:34 Atorvastatin Calcium (Lipitor) 10 mg HS PO 04/11/24 22:00 Hydralazine HCl (Apresoline Injection) 10 mg Q6HP PRN IV SBP>160 04/11/24 01:27 04/11/24 01:37 Losartan Potassium (Cozaar Tablet) 100 mg DAILY PO 04/11/24 10:00 04/11/24 11:21 Diagnostic Test (Pha) (Accu-Chek Comfort Curve T) [address] [facility] 04/11/24 11:30 04/11/24 11:21 Insulin Human Regular (InsuLIN R) [facility] 04/11/24 22:00 Insulin Human Regular (InsuLIN R) [facility] 04/11/24 11:30 04/11/24 12:10 Dextrose 50 ml UD PRN IV Blood Sugar LESS THAN 60 04/11/24 10:00 Review of Systems Constitutional: denies: chills, diaphoresis, fatigue, fever, malaise, sweats, weakness, others EENTM: denies: blurred vision, double vision, ear bleeding, ear discharge, ear drainage, ear pain, ear ringing, eye pain, eye redness, hearing loss, mouth pain, mouth swelling, nasal discharge, nose bleeding, nose congestion, nose pain, photophobia, tearing, throat pain, throat swelling, voice changes, others Respiratory: denies: cough, hemoptysis, orthopnea, SOB at rest, shortness of breath, SOB with excertion, stridor, wheezing, others Cardiovascular: denies: chest pain, dizzy spells, diaphoresis, Dyspnea on exertion, edema, irregular heart beat, left arm pain, lightheadedness, palpitations, PND, syncope, others Gastrointestinal: denies: abdomen distended, abdominal pain, blood streaked bowels, constipated, diarrhea, dysphagia, difficulty swallowing, hematemesis, me lj, nausea, poor appetite, poor fluid intake, rectal bleeding, rectal pain, vomiting, others Genitourinary: denies: burning, dysuria, flank pain, frequency, hematuria, incontinence, penile discharge, penile sore, pain, testicle pain, testicle swelling, urgency, others Neurological: reports: weakness (legs ); denies: dizziness, fainting, headache, left sided numbness, left sided weakness, numbness, paresthesia, pre-existing deficit, right sided numbness, right sided weakness, seizure, speech problems, tingling, tremors, others Musculoskeletal: reports: others (buttocks pain ); denies: back pain, gout, joint pain, joint swelling, muscle pain, muscle stiffness, neck pain Integumetry: denies: bruises, change in color, change in hair/nails, dryness, laceration, lesions, lumps, rash, wounds, others Allergic/Immunocompromised: denies: Difficulty Healing, Frequent Infections, Hives, Itching, others Hematologic/Lymphatic: denies: anemia, blood clots, easy bleeding, easy bruising, swollen glands, others Endocrine: denies: excessive hunger, excessive sweating, excessive thirst, excessive urination, flushing, intolerance to cold, intolerance to heat, unexplained weight gain, unexplained weight loss, others Psychiatric: denies: anxiety, bipolar disorder, depression, hopeless, panic disorder, schizophrenia, sleepless, suicidal, others All Other Systems: Reviewed and Negative Vital Signs Vital Signs Date Time Temp Pulse Resp B/P (MAP) Pulse Ox O2 Delivery O2 Flow Rate FiO2 04/11/24 11:21 149/90 04/11/24 09:34 82 04/11/24 09:00 97.2 14 96 97.2 04/11/24 05:46 Room Air* 0 96 21 Physical Exam General Appearance: Moderate Distress HEENT: Normal ENT Inspection, Pharynx Normal, TMs Normal Neck: Full Range of Motion, Non-Tender, Normal, Normal Inspection Respiratory: Chest Non-Tender, Lungs Clear, No Accessory Muscle Use, No Respiratory Distress, Normal Breath Sounds Cardiovascular: No Edema, No JVD, No Murmur, No Gallop, Normal Peripheral Puls es, Regular Rate/Rhythm Breast Exam: Deferred Gastrointestinal: No Organomegaly, Non Tender, No Pulsatile Mass, Normal Bowel Sounds, Soft Genitalia: Deferred Pelvic: Deferred Rectal: Deferred Extremities: Decreased range of motion, No calf tenderness, Normal capillary refill, No pedal edema, Other (Redness to the lower extremities) Musculoskeletal : Apperance: Normal Neurologic: Alert, registered nurse post partum II-XII nml as Tested, Motor Weakness, Normal Affect, Normal Mood, No Sensory Deficits Cerebellar Function: Unable to Test Reflexes: Normal Skin: Dry, Normal Color, Warm Lymphatic: No Adenopathy PATIENT: ASHOK GIBBONS ACCT: [id number] UNIT: [id number] : 1955 LOC: [facility] ROOM / BED: [address] [place] [address] AGE / SEX: 68 / M ADM STATUS: ADM IN SERVICE 35 ORDERING PHYSICIAN: TONY COCHRAN DO PROCEDURE(s): KIDUS - KIDNEY REASON: Emphysematous cystitis with incontinence ORDER NUMBER(s): [id number], ACCESSION NUMBER(s): [id number] INDICATION: Emphysematous cystitis with incontinence TECHNIQUE: Multiple real-time sonographic images of the kidneys and bladder were obtained. COMPARISON: None FINDINGS: The right kidney measures 11.3 cm in length, which is normal in size. There is normal echogenicity of the right kidney. No hydronephrosis. The left kidney measures 10.6 cm in length, which is normal in size. There is normal echogenicity of the left kidney. No hydronephrosis. Distended urinary bladder demonstrates diffuse wall thickening measuring up to 7 mm. Prevoid urinary bladder volumes of 989 mL. There is evidence of layering debris at the base of the urinary bladder. Urinary bladder diverticula noted. Foci of air throughout the urinary bladder wall. IMPRESSION: No sonographic evidence of acute renal abnormalities. Urinary bladder findings concerning for emphysematous cystitis. Surgical consultation recommended. ATED BY: BELEN MARIEE DO DICTATED DATE/TIME: 04/10/241939 SIGNED BY: BELEN MARIEE DO SIGNED DATE/TIME: 04/10/241939 CC: Labs/Diagnostic Data Labs Test 04/11/24 05:57 04/11/24 05:05 04/11/24 01:00 04/10/24 16:05 Range/Units POC Glucose 387 H 70-106 mg/dl White Blood Count 10.1 4.4-10.8 10^3/uL Red Blood Count 4.96 4.5-5.90 10^6/uL Hemoglobin 16.0 13.5-17.5 g/dL Hematocrit 46.5 41.0-53.0 % Mean Corpuscular Volume 93.8 80.0-100.0 fL Mean Corpuscular Hemoglobin 32.2 H 28.0-32.0 pg Mean Corpuscular Hemoglobin Concent 34.3 32.0-36.0 g/dL Red Cell Distribution Width 13.2 11.8-14.3 % Platelet Count 247 140-450 10^3/uL Mean Platelet Volume 9.3 6.9-10.8 fL Neutrophils (%) (Auto) 75.4 37.0-80.0 % Lymphocytes (%) (Auto) 12.1 10.0-50.0 % Monocytes (%) (Auto) 10.2 0.0-12.0 % Eosinophils (%) (Auto) 1.3 0.0-7.0 % Basophils (%) (Auto) 1.0 0.0-2.0 % Neutrophils # (Auto) 7.6 1.6-8.6 10 ^3/uL Lymphocytes # (Auto) 1.2 0.4-5.4 10 ^3/uL Monocytes # (Auto) 1.0 0-1.3 10 ^3/uL Eosinophils # (Auto) 0.1 0-0.8 10 ^3/uL Basophils # (Auto) 0.1 0-0.2 10 ^3/uL Nucleated Red Blood Cells 0.0 % Sodium Level 133 #L 136-145 mmol/L Potassium Level 3.7 3.5-5.1 mmol/L Chloride Level 99 98-107 mmol/L Carbon Dioxide Level 24 20-31 mmol/L Anion Gap 10 5-15 Blood Urea Nitrogen 21 9-23 mg/dL Creatinine 1.56 H 0.700-1.30 mg/dL Glomerular Filtration Rate Calc 48 >90 mL/min BUN/Creatinine Ratio 13.5 10.0-20.0 Serum Glucose 333 #H 74-106 mg/dL Calcium Level 9.2 8.7-10.4 mg/dL Total Bilirubin 0.5 0.2-1.0 mg/dL Aspartate Amino Transferase (AST) 19 13-40 U/L Alanine Aminotransferase (ALT) 14 7-40 U/L Alkaline Phosphatase 81 46-116 U/L Total Protein 6.3 5.7-8.2 g/dL Albumin 3.4 3.2-4.8 g/dL Plasma/Serum Blood Alcohol 3.1 <10 mg/dL Urine Color Light-brown Yellow Urine Clarity Turbid H Clear Urine pH 5.5 5.0-9.0 Urine Specific [place] 1.028 1.001-1.035 Urine Protein 2+ H Negative Urine Ketones 1+ H Negative Urine Blood 3+ H Negative /uL Urine Nitrite Negative Negative Urine Bilirubin Negative Negative Urine Urobilinogen Normal Negative mg/dL Urine Leukocyte Esterase Trace Negative /uL Urine RBC 176 0 - 3 /hpf Urine WBC 36 0 - 3 /hpf Urine Squamous Epithelial Cells Few <5 /hpf Urine Bacteria Many H None Seen /hpf Urine Yeast (Budding) Occasional None Seen /hpf Urine Glucose 4+ H Normal mg/dL Urine Opiates Screen Neg NEGATIVE Urine Fentanyl Screen Neg NEGATIVE Urine Barbiturates Screen Neg NEGATIVE Urine Phencyclidine Screen Neg NEGATIVE Urine Amphetamines Screen Neg NEGATIVE Urine Benzodiazepines Screen Neg NEGATIVE Urine Cocaine Screen Neg NEGATIVE Urine Cannabinoids Screen Neg NEGATIVE Hemoglobin A1c > 14.0 H <5.7 % A1C B-Type Natriuretic Peptide 85.08 0-100 pg/mL PATIENT: ASHOK GIBBONS ACCT: [id number] UNIT: [id number] : 1955 LOC: ER ROOM / BED: / AGE / SEX: 68 / M ADM STATUS: REG ER SERVICE 1438 ORDERING PHYSICIAN: ABDOUL JOE MD PROCEDURE(s): PL2CT - PELVIS WO CONTRAST REASON: pain ORDER NUMBER(s): [id number], ACCESSION NUMBER(s): [id number] EXAM: CT PELVIS WO CONTRAST INDICATION: pain EXAM DATE: 04/10/2024 02:54 PM COMPARISON: CT CT L FOOT WO CONTRAST on DOS: 08/06/23 TECHNIQUE: Multiple axial CT images of the pelvis were obtained using bone algorithm. Axial and coronal reformatting was done. Bone and soft tissue windows were reviewed. Radiation Dose Information: CT Dose: CTDI volume is 27.95 mGy. Dose-length product is 1079.19 mGy*cm Findings: Lack of intravenous contrast limits evaluation of solid organs and vasculature. No evidence of an acute fracture, dislocation, blastic, lytic, or osseous destructive lesions. No superficial soft tissue abnormalities. Distended urinary bladder with intraluminal and intramural gas. The distal ureters, prostate and seminal vesicles are unremarkable. No dilatation of the visualized portion of the bowel. No intraluminal free fluid. Diverticulosis. Impression: 1. No acute osseous abnormality. 2. Distended urinary bladder with intraluminal and intramural gas favored to reflect emphysematous cystitis. ATED BY: SARAH JAMES DO DICTATED DATE/TIME: 04/10/241530 SIGNED BY: SARAH JAMES DO SIGNED DATE/TIME: 04/10/241530 CC: Assessment Cystitis Urinary retention BHP CKD/Renal insufficiency Plan/Recommendation Hernandez to gravity Send catheterized urine for culture Outpatient cystoscopy TBa Plan discussed with: Patient, Other ANTHONY TRUONG MD Apr 11, 2024 13:27
--- NOTE | 2024-04-11 13:52 | DVHDS2 ---
Discharge Summary Date of Admission Apr 10, 2024 at 18:27 Date of Discharge: Apr 11, 2024 Labs/Diagnostic Data: Laboratory Results Test 04/11/24 05:57 04/11/24 05:05 04/11/24 01:00 04/10/24 16:05 POC Glucose 387 mg/dl (70-106) White Blood Count 10.1 10^3/uL (4.4-10.8) Red Blood Count 4.96 10^6/uL (4.5-5.90) Hemoglobin 16.0 g/dL (13.5-17.5) Hematocrit 46.5 % (41.0-53.0) Mean Corpuscular Volume 93.8 fL (80.0-100.0) Mean Corpuscular Hemoglobin 32.2 pg (28.0-32.0) Mean Corpuscular Hemoglobin Concent 34.3 g/dL (32.0-36.0) Red Cell Distribution Width 13.2 % (11.8-14.3) Platelet Count 247 10^3/uL (140-450) Mean Platelet Volume 9.3 fL (6.9-10.8) Neutrophils (%) (Auto) 75.4 % (37.0-80.0) Lymphocytes (%) (Auto) 12.1 % (10.0-50.0) Monocytes (%) (Auto) 10.2 % (0.0-12.0) Eosinophils (%) (Auto) 1.3 % (0.0-7.0) Basophils (%) (Auto) 1.0 % (0.0-2.0) Neutrophils # (Auto) 7.6 10 ^3/uL (1.6-8.6) Lymphocytes # (Auto) 1.2 10 ^3/uL (0.4-5.4) Monocytes # (Auto) 1.0 10 ^3/uL (0-1.3) Eosinophils # (Auto) 0.1 10 ^3/uL (0-0.8) Basophils # (Auto) 0.1 10 ^3/uL (0-0.2) Nucleated Red Blood Cells 0.0 % Sodium Level 133 mmol/L (136-145) Potassium Level 3.7 mmol/L (3.5-5.1) Chloride Level 99 mmol/L (98-107) Carbon Dioxide Level 24 mmol/L (20-31) Anion Gap 10 (5-15) Blood Urea Nitrogen 21 mg/dL (9-23) Creatinine 1.56 mg/dL (0.700-1.30) Glomerular Filtration Rate Calc 48 mL/min (>90) BUN/Creatinine Ratio 13.5 (10.0-20.0) Serum Glucose 333 mg/dL (74-106) Calcium Level 9.2 mg/dL (8.7-10.4) Total Bilirubin 0.5 mg/dL (0.2-1.0) Aspartate Amino Transferase (AST) 19 U/L (13-40) Alanine Aminotransferase (ALT) 14 U/L (7-40) Alkaline Phosphatase 81 U/L (46-116) Total Protein 6.3 g/dL (5.7-8.2) Albumin 3.4 g/dL (3.2-4.8) Plasma/Serum Blood Alcohol 3.1 mg/dL (<10) Urine Color Light-brown (Yellow) Urine Clarity Turbid (Clear) Urine pH 5.5 (5.0-9.0) Urine Specific [place] 1.028 (1.001-1.035) Urine Protein 2+ (Negative) Urine Ketones 1+ (Negative) Urine Blood 3+ /uL (Negative) Urine Nitrite Negative (Negative) Urine Bilirubin Negative (Negative) Urine Urobilinogen Normal mg/dL (Negative) Urine Leukocyte Esterase Trace /uL (Negative) Urine RBC 176 /hpf (0 - 3) Urine WBC 36 /hpf (0 - 3) Urine Squamous Epithelial Cells Few /hpf (<5) Urine Bacteria Many /hpf (None Seen) Urine Yeast (Budding) Occasional /hpf (None Urine Glucose 4+ mg/dL (Normal) Urine Opiates Screen Neg (NEGATIVE) Urine Fentanyl Screen Neg (NEGATIVE) Urine Barbiturates Screen Neg (NEGATIVE) Urine Phencyclidine Screen Neg (NEGATIVE) Urine Amphetamines Screen Neg (NEGATIVE) Urine Benzodiazepines Screen Neg (NEGATIVE) Urine Cocaine Screen Neg (NEGATIVE) Urine Cannabinoids Screen Neg (NEGATIVE) Hemoglobin A1c > 14.0 % A1C (<5.7) B-Type Natriuretic Peptide 85.08 pg/mL (0-100) Other Laboratory Tests 04/11/24 05:05 Brief Hx & Hospital Course: Patient is a 68-year-old male with past medical history of atrial fibrillation, type 2 diabetes, hypertension who presents with worsening lower extremity weakness over the past two days. Patient was recently seen twice in the ER but had left AMA both times despite excessive and lengthy discussions. Patient states he presented today because his lower extremity weakness worsened. Patient notes he is been having incontinence for several days with associated hematuria. Patient is able to move his lower extremities but notes that he fatigues easily. Patient was able to demonstrate this in front of me. Patient notes that he ran out of his medications and has not been seeing his PCP. Patient appears very disheveled and appears that he struggles to care for himself. Patient presented to the ER with hyperglycemia in the 500s. Renal function has been stable comparison to the prior days. CT of the abdomen was notable for emphysematous cystitis. Prior urine cultures did not show any growth. Patient was started on insulin Lantus 10 units q. bedtime with moderate sliding scale. Hemoglobin A1c was noted to be greater than 14. He was discharged on insulin Lantus 15 units q. bedtime with moderate insulin sliding scale. Metformin was not started given renal function. Patient's blood pressure was noted to be consistently elevated and his losartan was increased to 100 mg daily in addition to his amlodipine. Patient was evaluated by urology for emphysematous cystitis. Imaging did not suggest that the emphysema was present in the kidneys. There is recommended that patient have a Hernandez placed to gravity with outpatient cystoscopy to be planned. Patient was not started on Eliquis for his history of atrial fibrillation given the hematuria. Infectious disease was consulted who recommended patient complete ceftriaxone 1 g IV daily for 2 weeks. Patient underwent MRI lumbar spine without contrast which was notable for degenerative changes of the spine. Patient worked with physical therapy and was noted to ambulate minimally. Patient was discharged to SNF for further physical therapy and IV antibiotics. Patient was discharged in stable condition. Condition at Discharge: Fair Final Diagnosis/Problems List Generalized Weakness Secondary Diagnosis: Type 2 Diabetes Immunodeficiency Not Classified [place] (due to HgbA1c>14) Atrial Fibrillation Hypercoagulable State Emphysematous Cystitis Hypertension Discharge Disposition: Custodial Facility Discharge Instruct/Medications Diet: Consistent carbohydrate Activity: No Restrictions, As Tolerated Follow Up/Referral: Follow up with urology, nephrology, endocrine. Discharge Statement: "Patient was advised to return to the ER or call 911 if any headaches, dizziness, shortness of breath, chest pain, abdominal pain, bleeding, fevers, or worsening of medical condition. Patient was counseled about treatment plan, medications, possible side effects, patientverbalized understanding. All questions were answered to the best of my ability. This discharge took greater then 30 minutes in planning, reviewing documentation, counseling the patient, and discussing with other team members." ASSESSMENT ASSESSMENT Assessment Generalized Weakness TONY COCHRAN DO Apr 11, 2024 13:52
[2024-04-11] MEDS: ATORVASTATIN 20 MG TAB PO SCH (21:37)
--- NOTE | 2024-04-11 22:40 | DVHINCON2 ---
"Date of service: Apr 11, 2024 Family History: FH: heart disease G8 FATHER, , Age: 50's - 60 Allergies: Coded Allergies: NO KNOWN ALLERGIES (Unverified , 08/06/23) Home Meds Active Scripts Clotrimazole (Lotrimin) 1 Applic Ap, 1 APPLIC TOP BID for 15 Days, APPLIC Prov:WILBER TINEO RESIDENT 08/12/23 Clindamycin Hcl (Clindamycin Hcl) 300 Mg Cap, 300 MG PO TID for 14 Days, CAP Prov:WILBER TINEO RESIDENT 08/12/23 Reported Medications Atorvastatin Calcium (ATORVASTATIN CALCIUM) 10 Mg Tab, 1 TAB PO DAILY, #30 TAB 5 Refills 08/07/23 Losartan Potassium (Losartan Potassium) 50 Mg Tab, 50 MG PO DAILY for 30 Days, MG 08/07/23 Amlodipine Besylate (Amlodipine Besylate) 5 Mg Tab, 5 MG PO DAILY for 30 Days, MG 08/07/23 Metoprolol Succinate (Metoprolol Succinate Er) 50 Mg Tab, 50 MG PO DAILY for 30 Days, MG 08/07/23 Metformin Hydrochloride (Metformin Hcl) 850 Mg Tab, 850 MG PO TID for 30 Days, MG 08/07/23 Current Medications Current Medications Medications (Trade) Dose Ordered Sig/Miroslava Route PRN Reason Start Time Stop Time Status Last Admin Losartan Potassium (Cozaar Tablet) 50 mg DAILY PO 04/11/24 10:00 04/11/24 09:17 DC Metoprolol Succinate (Toprol Xl) 50 mg DAILY PO 04/11/24 10:00 04/11/24 09:34 Atorvastatin Calcium (Lipitor) 10 mg HS PO 04/11/24 22:00 04/11/24 21:37 Hydralazine HCl (Apresoline Injection) 10 mg Q6HP PRN IV SBP>160 04/11/24 01:27 04/11/24 01:37 Losartan Potassium (Cozaar Tablet) 100 mg DAILY PO 04/11/24 10:00 04/11/24 11:21 Diagnostic Test (Pha) (Accu-Chek Comfort Curve T) 1 strip ACHS 04/11/24 11:30 04/11/24 21:47 Insulin Human Regular (InsuLIN R) HS SC 04/11/24 22:00 04/11/24 21:46 Insulin Human Regular (InsuLIN R) AC SC 04/11/24 11:30 04/11/24 18:11 Dextrose 50 ml UD PRN IV Blood Sugar LESS THAN 60 04/11/24 10:00 Vital Signs Vital Signs Date Time Temp Pulse Resp B/P (MAP) Pulse Ox O2 Delivery O2 Flow Rate FiO2 04/11/24 21:00 97.3 78 21 126/81 (96) 94 97.3 04/11/24 20:00 Room Air* 0 21 Labs/Diagnostic Data Labs Test 04/11/24 21:39 04/11/24 19:00 04/11/24 05:05 04/11/24 01:00 Range/Units POC Glucose 302 H 70-106 mg/dl White Blood Count 10.1 4.4-10.8 10^3/uL Red Blood Count 4.96 4.5-5.90 10^6/uL Hemoglobin 16.0 13.5-17.5 g/dL Hematocrit 46.5 41.0-53.0 % Mean Corpuscular Volume 93.8 80.0-100.0 fL Mean Corpuscular Hemoglobin 32.2 H 28.0-32.0 pg Mean Corpuscular Hemoglobin Concent 34.3 32.0-36.0 g/dL Red Cell Distribution Width 13.2 11.8-14.3 % Platelet Count 247 140-450 10^3/uL Mean Platelet Volume 9.3 6.9-10.8 fL Neutrophils (%) (Auto) 75.4 37.0-80.0 % Lymphocytes (%) (Auto) 12.1 10.0-50.0 % Monocytes (%) (Auto) 10.2 0.0-12.0 % Eosinophils (%) (Auto) 1.3 0.0-7.0 % Basophils (%) (Auto) 1.0 0.0-2.0 % Neutrophils # (Auto) 7.6 1.6-8.6 10 ^3/uL Lymphocytes # (Auto) 1.2 0.4-5.4 10 ^3/uL Monocytes # (Auto) 1.0 0-1.3 10 ^3/uL Eosinophils # (Auto) 0.1 0-0.8 10 ^3/uL Basophils # (Auto) 0.1 0-0.2 10 ^3/uL Nucleated Red Blood Cells 0.0 % Sodium Level 133 #L 136-145 mmol/L Potassium Level 3.7 3.5-5.1 mmol/L Chloride Level 99 98-107 mmol/L Carbon Dioxide Level 24 20-31 mmol/L Anion Gap 10 5-15 Blood Urea Nitrogen 21 9-23 mg/dL Creatinine 1.56 H 0.700-1.30 mg/dL Glomerular Filtration Rate Calc 48 >90 mL/min BUN/Creatinine Ratio 13.5 10.0-20.0 Serum Glucose 333 #H 74-106 mg/dL Calcium Level 9.2 8.7-10.4 mg/dL Total Bilirubin 0.5 0.2-1.0 mg/dL Aspartate Amino Transferase (AST) 19 13-40 U/L Alanine Aminotransferase (ALT) 14 7-40 U/L Alkaline Phosphatase 81 46-116 U/L Total Protein 6.3 5.7-8.2 g/dL Albumin 3.4 3.2-4.8 g/dL Plasma/Serum Blood Alcohol 3.1 <10 mg/dL Urine Color Light-brown Yellow Urine Clarity Turbid H Clear Urine pH 5.5 5.0-9.0 Urine Specific [place] 1.028 1.001-1.035 Urine Protein 2+ H Negative Urine Ketones 1+ H Negative Urine Blood 3+ H Negative /uL Urine Nitrite Negative Negative Urine Bilirubin Negative Negative Urine Urobilinogen Normal Negative mg/dL Urine Leukocyte Esterase Trace Negative /uL Urine RBC 176 0 - 3 /hpf Urine WBC 36 0 - 3 /hpf Urine Squamous Epithelial Cells Few <5 /hpf Urine Bacteria Many H None Seen /hpf Urine Yeast (Budding) Occasional None Seen /hpf Urine Glucose 4+ H Normal mg/dL Urine Opiates Screen Neg NEGATIVE Urine Fentanyl Screen Neg NEGATIVE Urine Barbiturates Screen Neg NEGATIVE Urine Phencyclidine Screen Neg NEGATIVE Urine Amphetamines Screen Neg NEGATIVE Urine Benzodiazepines Screen Neg NEGATIVE Urine Cocaine Screen Neg NEGATIVE Urine Cannabinoids Screen Neg NEGATIVE Test 04/10/24 16:05 Range/Units Hemoglobin A1c > 14.0 H <5.7 % A1C B-Type Natriuretic Peptide 85.08 0-100 pg/mL Problems(with codes): (1) Cellulitis (2) Diabetic ulcer of left foot (3) Bilateral leg pain (4) Hyperglycemia (5) Hyponatremia (6) Urinary (tract) obstruction (7) Hematuria Plan/Recommendation ASSESSMENT AND PLAN: ID Problem List: - Emphysematous cystitis - Urinary tract infection - Diabetes mellitus type 2 - Hypertension - Atrial fibrillation Assessment This is a 68 y.o. male with a past medical history of diabetes mellitus type 2, hypertension, and atrial fibrillation who presents with worsening lower extremity edema for the last two days, incontinence, and hematuria. He has been seen in the ER multiple times but has left AMA. He reports generalized weakness, particularly in the lower extremities. Laboratory data show hyperglycemia with blood sugars in the 500s, sodium 133, BUN 21, creatinine 1.56 (above baseline), hemoglobin A1c >14%, WBC count 13.4, hemoglobin 16.4, platelets 235. Urinalysis shows trace leukocyte esterase, trace nitrites, few squamous cells, 1+ ketones, 2+ protein, 3+ blood. CT abdomen and pelvis reveals intraluminal and intramural gas in the bladder wall consistent with emphysematous cystitis. Urine culture shows >100,000 mixed levi (3 colony types). Plan: - Continue ertapenem empirically for emphysematous cystitis. - Follow up on urine culture results. - If urine culture shows ESBL organisms, will continue ertapenem. - If sensitive to ceftriaxone, will switch to this for treatment. - Recommend strict blood sugar control, aiming for glucose levels under 180 mg/dL. - If urinary tract infections and emphysematous cystitis recur after treatment and blood sugar control, recommend CT with oral and rectal contrast to evaluate for possible vesicocolonic fistula. Isolation Precautions: Standard Assessment and plan was discussed with the patient as written above. Plan is subject to change pending incorporation of new incoming information/diagnostics. Updates may be added as addendum at the bottom (OR TOP) of this note. Thank you for interesting consult. ID will continue to follow. Please contact Infectious Disease for any questions or concerns. History: The patient's chart and medications were reviewed in detail and the patient was seen and examined. History obtained from: patient Mr. Pfeiffer is a 68 y.o. male with a past medical history of diabetes mellitus t ype 2, hypertension, and atrial fibrillation who presents with worsening lower extremity edema for the last two days, incontinence, and hematuria. He has been seen in the ER multiple times but has left AMA. Review of Systems: A complete 10 system review of systems was completed and negative except as noted in the HPI or here. ROS: - CONSTITUTIONAL: Denies weight loss, fever, and chills. - HEENT: Denies changes in vision and hearing. - RESPIRATORY: Denies SOB and cough. - CV: Denies chest pain and palpitations. - GI: Denies abdominal pain, nausea, vomiting, and diarrhea. - : Reports incontinence and hematuria. - MSK: Reports generalized weakness, especially in lower extremities. - SKIN: Denies rash and pruritus. - NEUROLOGICAL: Denies headache and syncope. - PSYCHIATRIC: Denies recent changes in mood. Denies anxiety and depression. Past Medical History: Diagnosis Diabetes mellitus type 2 Hypertension Atrial fibrillation Past Surgical History: History reviewed. No pertinent surgical history. Home Medications: Prior to Admission medications Medication | Sig - | Clotrimazole | Use as directed. Clindamycin | Take as directed. Atorvastatin | Take 1 tablet by mouth daily. Losartan | Take 1 tablet by mouth daily. Amlodipine | Take 1 tablet by mouth daily. Metoprolol | Take 1 tablet by mouth daily. Metformin | Take 1 tablet by mouth twice daily. Allergies: No Known Allergies Family History: Family History Not on file Social History: Socioeconomic History Marital status: Not on file Number of children: Not on file Years of education: Not on file Highest education level: Not on file Occupational History Not on file Tobacco Use Smoking status: Not on file Substance and Sexual Activity Alcohol use: Not on file Drug use: Not on file Sexual activity: Not on file Other Topics Concern Not on file Social Determinants of Health Not on file Objective: Vital Signs on Arrival: Temp: 95.4?F?BP: 169/102?Pulse: 83?Resp: 20?SpO?: Not documented Most Recent Vital Signs: (Not documented) Admission Weight: Not documented?BMI: Not documented Physical Exam: General:??NAD Neck:???Supple. No masses. HEENT:??PERRL. Normal lids and conjunctiva. Moist mucous membranes. Oropharynx without lesions, exudates, or excessive erythema. Normal appearance of the external aspects of the nose and ears. Heart:???Irregularly irregular rhythm, normal rate. No murmur. No lower extremity edema. Lungs:???Normal respiratory effort. Clear to auscultation bilaterally. No wheezes. No crackles. Abdomen:?Soft. Non-tender. Non-distended. No masses or abdominal hernia. MSK:?3/5 strength in bilateral lower extremities. Skin:?Warm and dry, no rashes. Neuro:???Alert. No facial droop or slurred speech. Extra-ocular movements intact. Sensation intact to soft touch in all 4 limbs. Psych:???Appropriate mood. Full affect. Oriented to person, place, time, and situation. Lines: Active Lines Not on file Diagnostic Studies: Available diagnostic studies were reviewed personally. Significant relevant results and findings are outlined below or addressed in the Assessment and Plan above. Pertinent Imaging: Recent Results (from the past 360 hour(s)) CT Abdomen and Pelvis: Impression 1. Intraluminal and intramural gas in the bladder wall consistent with emphysematous cystitis. Renal Ultrasound: Impression 1. No sonographic evidence of renal abnormalities. Lumbar MRI: Impression 1. 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 Laboratory Data: - Chemistry: - Sodium: 133 mmol/L - BUN: 21 mg/dL - Creatinine: 1.56 mg/dL (above baseline) - Glucose: Blood sugars in the 500s - Hemoglobin A1c: >14% - Hematology: - WBC count: 13.4 x10/L - Hemoglobin: 16.4 g/dL - Platelets: 235 x10/L - Urinalysis: - Trace leukocyte esterase - Trace nitrites - Few squamous cells - 1+ ketones - 2+ protein - 3+ blood - Urine Culture: - >100,000 mixed levi (3 colony types) - Plan discussed with: Patient MARCELA HAUSER MD Apr 11, 2024 22:40"
[2024-04-13 08:06] LABS: Prostate Specific Antigen 5.5 ng/mL (0.0-4.0)
--- NOTE | 2024-04-13 13:27 | DVHPN2 ---
Consult Progress Note Date Seen: Apr 12, 2024 Subjective Patient reports: Feels better (BS improving, no fever or chills.) Objective vital signs Vital Sign Date Time Temp Pulse Resp B/P (MAP) Pulse Ox O2 Delivery O2 Flow Rate FiO2 04/11/24 21:00 97.3 78 21 126/81 (96) 94 97.3 04/11/24 20:00 Room Air* 0 21 medications Physical Exam: General:??NAD Neck:???Supple. No masses. HEENT:??PERRL. Normal lids and conjunctiva. Moist mucous membranes. Oropharynx without lesions, exudates, or excessive erythema. Normal appearance of the external aspects of the nose and ears. Heart:???Irregularly irregular rhythm, normal rate. No murmur. No lower extremity edema. Lungs:???Normal respiratory effort. Clear to auscultation bilaterally. No wheezes. No crackles. Abdomen:?Soft. Non-tender. Non-distended. No masses or abdominal hernia. MSK:?3/5 strength in bilateral lower extremities. diabetic foot ulcer cdi Skin:?Warm and dry, no rashes. Neuro:???Alert. No facial droop or slurred speech. Extra-ocular movements intact. Sensation intact to soft touch in all 4 limbs. Psych:???Appropriate mood. Full affect. Oriented to person, place, time, and situation. - laboratory and microbiology Laboratory Tests 04/11/24 05:05 Test 04/11/24 05:05 Range/Units Serum Glucose 333 #H 74-106 mg/dL Problem List/Assessment/Plan Problem List/Assessment/Plan ASSESSMENT AND PLAN: ID Problem List: - Emphysematous cystitis - Urinary tract infection - Diabetes mellitus type 2 - Hypertension - Atrial fibrillation Assessment This is a 68 y.o. male with a past medical history of diabetes mellitus type 2, hypertension, and atrial fibrillation who presents with worsening lower extremity edema for the last two days, incontinence, and hematuria. He has been seen in the ER multiple times but has left AMA. He reports generalized weakness, particularly in the lower extremities. Laboratory data show hyperglycemia with blood sugars in the 500s, sodium 133, BUN 21, creatinine 1.56 (above baseline), hemoglobin A1c >14%, WBC count 13.4, hemoglobin 16.4, platelets 235. Urinalysis shows trace leukocyte esterase, trace nitrites, few squamous cells, 1+ ketones, 2+ protein, 3+ blood. CT abdomen and pelvis reveals intraluminal and intramural gas in the bladder wall consistent with emphysematous cystitis. Urine culture shows >100,000 mixed levi (3 colony types). Klebsiella growth on urine culture repeat Plan: - switch to ceftriaxone for emphysematous cystitis. - Follow up on urine culture results. - Recommend strict blood sugar control, aiming for glucose levels under 180 mg/dL. - If urinary tract infections and emphysematous cystitis recur after treatment and blood sugar control, recommend CT with oral and rectal contrast to evaluate for possible vesicocolonic fistula. Isolation Precautions: Standard Assessment and plan was discussed with the patient as written above. Plan is subject to change pending incorporation of new incoming information/diagnostics. Updates may be added as addendum at the bottom (OR TOP) of this note. Thank you for interesting consult. ID will continue to follow. Please contact Infectious Disease for any questions or concerns. Plan discussed with: Patient MARCELA HAUSER MD Apr 13, 2024 13:27
== END 2024-04-11 22:31 ==
LOC: EDBD 13:26 → ER 13:26 → TELE 18:27 → TELE-WESTW 04-11 05:33
PROVIDERS: ADMIT Student in an Organized Health Care Education/Training Program; ATTEND Student in an Organized Health Care Education/Training Program
DX: I48.91 Unspecified atrial fibrillation (principal); I12.9 Hypertensive chronic kidney disease with stage 1 through stage 4 chronic kidney disease, or unspecified chronic kidney disease; E11.22 Type 2 diabetes mellitus with diabetic chronic kidney disease; N18.9 Chronic kidney disease, unspecified; E87.1 Hypo-osmolality and hyponatremia; R53.1 Weakness; E11.65 Type 2 diabetes mellitus with hyperglycemia; D68.59 Other primary thrombophilia; D84.9 Immunodeficiency, unspecified; Z79.4 Long term (current) use of insulin; Z79.84 Long term (current) use of oral hypoglycemic drugs; Z79.899 Other long term (current) drug therapy
CPT/HCPCS: 36415; 72148; 72192; 76775; 80048; 80053; 80307; 80320; 81001; 82962; 83036; 83880; 84154; 85025; 87086; 87088; 87186; 93005; 96361; 96365; 96366; 96367; 96375; 97163; 99291; G0378; J0360; J0696; J1335; J1815